=== PATIENT | female | born 1955 | race Caucasian/White ===

== ENCOUNTER → 2018-09-04 | Outpatient (CLI) | payer MEDICARE, OTHER ==
--- NOTE | 2018-09-04 15:14 | RADIOLOGY REPORT (SQ) ---
EXAM DESCRIPTION: CT CHEST WITHOUT COMPLETED DATE/TIME: 09/04/2018 1:28 pm REASON FOR STUDY: R91.8 OTHER NONSPECIFIC ABNORMAL FINDING OF LUNG FIELD R91.8 OTHER NONSPECIFIC AB NORMAL FINDING OF LUNG FIELD COMPARISON: None. TECHNIQUE: CT scan performed of the chest without intravenous contrast. Images reviewed with lung, soft tissue and bone windows. Reconstructed coronal and sagittal MPR images reviewed. All images st ored on PACS. All CT scanners at this facility use dose modulation, iterative reconstruction, and/or weight based d osing when appropriate to reduce radiation dose to as low as reasonably achievable (ALARA). [facility]: Dose Right [facility]: CareDose [facility]: Dose Right [facility]: Teradose 4D [facility]: eMindful RADIATION DOSE: CT Rad equipment meets quality standard of care and radiation dose reduction techniq ues were employed. CTDIvol: 5.2 mGy. DLP: 183 mGy-cm. mGy. LIMITATIONS: No technical limitations. FINDINGS: LUNGS AND PLEURA: Oval density along accessory fissure in the left upper lobe measures les s than 20 HU. 2.6 x 0.9 cm. This most likely represents benign fluid. Band density extends to the anterior pleural surface. Mild centrilobular emphysema. HILAR AND MEDIASTINAL STRUCTURES: No identified masses or abnormal nodes. No obvious aneurysm. HEART AND VASCULAR STRUCTURES: No aneurysm. No pericardial effusion. UPPER ABDOMEN: No significant findings. Limited exam. THYROID AND OTHER SOFT TISSUES: No masses. No adenopathy. BONES: No significant finding. HARDWARE: None in the chest. OTHER: No other significant findings. IMPRESSION: COPD. Small amount of fluid within accessory left horizontal fissure. Low suspicion fo r malignancy. Recommend [address] followup. Alternatively, PET-CT could be obtained. TECHNICAL DOCUMENTATION: JOB ID: [id number] Quality ID # [id number]: Final reports with documentation of one or more dose reduction techniques (e.g., Au tomated exposure control, adjustment of the mA and/or kV according to patient size, use of iterative reconstruction technique) 2010 [employer]- All Rights Reserved Reading location - IP/workstation name: [email or web address]
== END ==
LOC: RAD 15:39
PROVIDERS: ATTEND Internal Medicine Critical Care Medicine
DX: R91.8 Other nonspecific abnormal finding of lung field (principal)
CPT/HCPCS: 71250

== ENCOUNTER → 2018-09-22 | Outpatient (CLI) | payer MEDICARE, OTHER ==
--- NOTE | 2018-09-23 11:31 | RADIOLOGY REPORT (SQ) ---
EXAM DESCRIPTION: PET CT SKULL/THIGH COMPLETED DATE/TIME: 09/22/2018 6:24 pm REASON FOR STUDY: ABNORMAL FINDINGS IN LUNG FIELD R91.8 OTHER NONSPECIFIC ABNORMAL FINDING OF LUNG FIELD COMPARISON: CT chest 09/04/2018 RADIONUCLIDE AND DOSE: 9.2 mCi F18 FDG The route of agent administration: Intravenous FASTING BLOOD SUGAR: 98 mg/dl CONTRAST TYPE AND DOSE: No CT contrast given. TECHNIQUE: Blood glucose level was verified. Above dose of FDG was injected intravenously. 2-D seg mented attenuation correction images were obtained from the base of the skull to the midthighs. Nonc ontrast CT images were obtained for attenuation correction and fusion with emission images. CT image s were performed without oral or intravenous contrast and are not sensitive for parenchymal lesions. A series of overlapping emission PET images were obtained. Images reviewed and manipulated at [facility] work station by the radiologist. Images stored on PACS. LIMITATIONS: None. FINDINGS: HEAD AND NECK: No areas of abnormal metabolic activity in the soft tissues of the head and neck. CHEST: Left upper lobe mass is present, 2.6 x 1.4 cm in size with SUV of 7.9. There are hypermetabolic mediastinal/left hilar lymph nodes as follows: Prevascular lymph node 1.2 x 1 cm in size axial image 67, SUV 6.9 AP window lymph node 1.4 x 1 cm in size axial image 68, SUV 5.5 Left hilar lymph node 1.6 x 1.5 cm axial image 72, SUV of 9 ABDOMEN AND PELVIS: No areas of abnormal metabolic activity in the abdomen or pelvis. Expected physi ologic activity is present in the genitourinary system and bowel. PROXIMAL LOWER EXTREMITIES: No areas of abnormal metabolic activity in the soft tissues of the lower extremities. BONES: No abnormal metabolic activity in the visualized skeleton. ADDITIONAL CT FINDINGS: Small hiatal hernia. Benign 2 cm cyst left lobe liver subdiaphragmatic surfa ce. Colonic diverticulosis without CT signs of acute diverticulitis OTHER: Liver background activity 2.4 SUV. Blood pool background activity 1.9 SUV IMPRESSION: Metabolically active left upper lobe malignant mass with left hilar and mediastinal randi gnant lymph nodes TECHNICAL DOCUMENTATION: JOB ID: [id number] [employer]- All Rights Reserved Reading location - IP/workstation name: [email or web address]
== END ==
LOC: RAD 15:26
PROVIDERS: ATTEND Internal Medicine Critical Care Medicine
DX: R91.8 Other nonspecific abnormal finding of lung field (principal)
CPT/HCPCS: 78815; A9552

== ENCOUNTER → 2018-12-08 | Outpatient (CLI) | payer MEDICARE, OTHER ==
--- NOTE | 2018-12-09 11:32 | RADIOLOGY REPORT (SQ) ---
EXAM DESCRIPTION: PET CT SKULL/THIGH COMPLETED DATE/TIME: 12/08/2018 9:05 pm REASON FOR STUDY: LUNG CANCER C34.92 MALIGNANT NEOPLASM OF UNSP PART OF LEFT BRONCHUS OR L COMPARISON: PET-CT 09/22/2018 CT chest 09/04/2018 RADIONUCLIDE AND DOSE: 11.4 mCi F18 FDG The route of agent administration: Intravenous FASTING BLOOD SUGAR: 113 mg/dl CONTRAST TYPE AND DOSE: No CT contrast given. TECHNIQUE: Blood glucose level was verified. Above dose of FDG was injected intravenously. 2-D seg mented attenuation correction images were obtained from the base of the skull to the midthighs. Nonc ontrast CT images were obtained for attenuation correction and fusion with emission images. CT image s were performed without oral or intravenous contrast and are not sensitive for parenchymal lesions. A series of overlapping emission PET images were obtained. Images reviewed and manipulated at [facility] work station by the radiologist. Images stored on PACS. LIMITATIONS: None. FINDINGS: HEAD AND NECK: No areas of abnormal metabolic activity in the soft tissues of the head and neck. CHEST: Left upper lobe mass and oral measures 3 x 1.3 cm in size on axial images 80, with SUV 6.5 (wa s 2.6 x 1.4 cm SUV 7.9 on 09/22/2018). Mediastinal adenopathy is similar compared to prior PET-CT 09/22/2018 as follows: Prevascular 1.5 x 1 cm node axial image 74 SUV of 7 AP window 1.3 x 0.8 cm node axial image 73, SUV 5.5 Left hilar 1.7 x 1 cm node axial image 80, SUV 9.5 ABDOMEN AND PELVIS: No areas of abnormal metabolic activity in the abdomen or pelvis. Expected physi ologic activity is present in the genitourinary system and bowel. PROXIMAL LOWER EXTREMITIES: No areas of abnormal metabolic activity in the soft tissues of the lower extremities. BONES: No abnormal metabolic activity in the visualized skeleton. ADDITIONAL CT FINDINGS: There is wall thickening and luminal narrowing along the distal esophagus/ ga stric cardia with diffuse mild increased uptake SUV 3.9. This could represent inflammatory change ra ther than neoplasm. A 10 cm long segment of sigmoid colon wall thickening and luminal narrowing is present with SUV of 2. 9. There are multiple diverticuli in this area, findings could represent low-grade diverticular infl ammation. Focal increased uptake over the right trochanteric bursa row of the hip with SUV 3.1 likely trochante chantal bursitis. OTHER: Liver background activity 2.0 SUV. Blood pool background activity 1.6 SUV IMPRESSION: Similar appearance of the left upper lobe squamous cell lung mass and mediastinal adenop athy as compared to PET-CT 09/22/2018 TECHNICAL DOCUMENTATION: JOB ID: [id number] [employer]- All Rights Reserved Reading location - IP/workstation name: [email or web address]
== END ==
LOC: RAD 19:06
PROVIDERS: ATTEND Internal Medicine Medical Oncology
DX: C34.12 Malignant neoplasm of upper lobe, left bronchus or lung (principal)
CPT/HCPCS: 78815; A9552

== ENCOUNTER → 2019-09-29 | Outpatient (CLI) | payer MEDICARE, OTHER ==
[2019-09-29 09:22] LABS: HEMATOCRIT 28.4 % (36.0-47.0); HEMOGLOBIN 10.2 g/dL (12.0-15.5); MEAN CORPUSCULAR HEMOGLOBIN 35.2 pg (27.0-33.4); MEAN CORPUSCULAR VOLUME 98 fl (80-97); PLATELET COUNT 124 10^3/uL (150-450); RED BLOOD COUNT 2.91 10^6/uL (3.72-5.28); RED CELL DISTRIBUTION WIDTH 12.2 % (11.5-14.0)
[2019-09-29 10:09] LABS: WHITE BLOOD COUNT 1.9 10^3/uL (4.0-10.5)
[2019-09-29 13:56] LABS: PATH REVIEW PATHOLOGIST REVIEWED
== END ==
LOC: OD 08:01
PROVIDERS: ATTEND Radiology Radiation Oncology
DX: C34.12 Malignant neoplasm of upper lobe, left bronchus or lung (principal)
CPT/HCPCS: 36415; 85027

== ENCOUNTER 2019-10-04 19:46 | Emergency (ER) | payer MEDICARE, OTHER ==
--- NOTE | 2019-10-04 20:05 | ER Document Report ---
ED Medical Screen (RME) - General Stated Complaint: RIGHT ARM WEAKNESS,CHEMO PATIENT Time Seen by Provider: 10/04/19 19:56 Primary Care Provider: EYAD OLVERA MD [Primary Care Provider] - Follow up as needed Mode of Arrival: Wheelchair Information source: Patient Notes: This 64-year-old female with history of lung cancer and high blood pressure presents emergency department with right arm weakness. Patient is not able to raise her right arm. Reports symptoms started possibly around . She is currently under the treatment of oncology receiving chemo and radiation for lung cancer. reports she has had increased weakness. Facial features symmetric answering all questions appropriately some bilateral weakness to the lower extremities. Denies history of stroke. I have greeted and performed a rapid initial assessment of this patient. A comprehensive ED assessment and evaluation of the patient, analysis of test results and completion of the medical decision making process will be conducted by additional ED providers. Dictation of this chart was performed using voice recognition software; therefore, there may be some unintended grammatical errors. TRAVEL OUTSIDE OF THE [place] IN LAST 30 DAYS: No Physical Exam - Vital signs Vitals: Temp Pulse Resp BP Pulse Ox 97.8 F 115 H 20 131/77 H 99 10/04/19 19:56 10/04/19 19:56 10/04/19 19:56 10/04/19 19:56 10/04/19 19:56 Course - Vital Signs Vital signs: Temp Pulse Resp BP Pulse Ox 97.8 F 115 H 20 131/77 H 99 10/04/19 19:56 10/04/19 19:56 10/04/19 19:56 10/04/19 19:56 10/04/19 19:56 Doctor's Discharge - Discharge Referrals: EYAD OLVERA MD [Primary Care Provider] - Follow up as needed
[2019-10-04 20:42] LABS: HEMATOCRIT 29.7 % (36.0-47.0); HEMOGLOBIN 10.5 g/dL (12.0-15.5); MEAN CORPUSCULAR HEMOGLOBIN 35.3 pg (27.0-33.4); MEAN CORPUSCULAR HGB CONC 35.4 g/dL (32.0-36.0); MEAN CORPUSCULAR VOLUME 100 fl (80-97); PLATELET COUNT 153 10^3/uL (150-450); RED BLOOD COUNT 2.98 10^6/uL (3.72-5.28); RED CELL DISTRIBUTION WIDTH 13.1 % (11.5-14.0); WHITE BLOOD COUNT 4.9 10^3/uL (4.0-10.5)
[2019-10-04 20:48] LABS: PROTHROMBIN TIME 12.7 SEC (11.4-15.4)
[2019-10-04 20:49] LABS: INTERNATIONAL RATION (INR) 0.95; PARTIAL THROMBOPLASTIN TIME 28.5 SEC (23.5-35.8)
--- NOTE | 2019-10-04 20:52 | RADIOLOGY REPORT (SQ) ---
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 COMPARISON: None. TECHNIQUE: CT scan of the brain without IV contrast. This exam was performed according to our departmental dose-optimization program, which includes automated exposure control, adjustment of the mA and/or kV according to patient size and/or use of iterative reconstruction technique. FINDINGS: There is a focal area of hypodensity in the left parietal lobe likely representing acute infarction. No evidence of intracranial hemorrhage, extra-axial fluid collection, or midline shift. No air-fluid levels are seen in the paranasal sinuses to suggest acute sinusitis. No depressed skull fracture. IMPRESSION: 1. 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 Consider MRI for confirmation. 2. No acute intracranial hemorrhage.
[2019-10-04 20:56] LABS: ALBUMIN 4.1 g/dL (3.5-5.0); ALKALINE PHOSPHATASE 74 U/L (38-126); ANION GAP 12 (5-19); ASPARTATE AMINO TRANSFERASE 18 U/L (14-36); BILIRUBIN,DIRECT 0.1 mg/dL (0.0-0.4); BILIRUBIN,TOTAL 0.7 mg/dL (0.2-1.3); BLOOD UREA NITROGEN 10 mg/dL (7-20); CALCIUM 9.3 mg/dL (8.4-10.2); CARBON DIOXIDE 27 mmol/L (22-30); CHLORIDE 98 mmol/L (98-107); CREATINE KINASE 22 U/L (30-135); GLUCOSE 148 mg/dL (75-110); POTASSIUM 4.1 mmol/L (3.6-5.0); TOTAL PROTEIN 6.8 g/dL (6.3-8.2)
--- NOTE | 2019-10-04 20:56 | RADIOLOGY REPORT (SQ) ---
EXAM DESCRIPTION: XR CHEST 1 VIEW COMPLETED DATE/TME: 10/04/2019 20:03 CLINICAL HISTORY: 64 years, Female, right arm weakness COMPARISON: Prior PET/CT from 12/08/2018; 07/31/2019 NUMBER OF VIEWS: One TECHNIQUE: Single frontal view of the chest was obtained LIMITATIONS: None. FINDINGS: Cardiac and mediastinal contours are normal. Lungs are clear. No pleural effusion or pneumothorax. Previously detailed left suprahilar mass is poorly appreciated on this plain radiographic exam when compared with previous PET/CT dated 07/31/2019. IMPRESSION: No acute disease. copyright 2010 [employer]- All Rights Reserved
[2019-10-04 21:05] LABS: ABSOLUTE LYMPHOCYTES# (MANUAL) 0.1 10^3/uL (0.5-4.7); ABSOLUTE MONOCYTES # (MANUAL) 0.2 10^3/uL (0.1-1.4); BAND NEUTROPHILS % (MANUAL) 8 % (3-5); BASOPHILS % (MANUAL) 0 % (0-2); EOSINOPHILS % (MANUAL) 0 % (0-6); HYPOCHROMASIA 1+; LYMPHOCYTES % (MANUAL) 3 % (13-45); MONOCYTES % (MANUAL) 4 % (3-13); SEGMENTED NEUTROPHILS % (MAN) 85 % (42-78); TOTAL CELLS COUNTED 100
[2019-10-04 21:06] LABS: PLATELET COMMENT ADEQUATE
[2019-10-04 21:08] LABS: CREATINE KINASE MB 0.54 ng/mL (<4.55)
[2019-10-04 21:10] LABS: TROPONIN I < 0.012 ng/mL
[2019-10-04 23:27] VITALS: BP 151/82
--- NOTE | 2019-10-05 00:09 | EKG REPORT ---
SEVERITY:- ABNORMAL ECG - SINUS TACHYCARDIA BORDERLINE LEFT AXIS DEVIATION BORDERLINE PROLONGED QT INTERVAL LA ABNORMALITY CONSIDER OLD TRUE POST [place]. : Confirmed by: Rubin Soto MD 05-Oct-2019 00:08:38
--- NOTE | 2019-10-07 08:30 | ER Document Report ---
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 at bedside states he noticed the right upper extremity weakness a few nights ago but it "was really not all that bad" so he did not think anything of it, stating that it "just seemed like the patient was not using her right arm as much as she normally would". reports yesterday the patient seemed to use her right arm even less than the day before, and today, the patient has essentially never used her right upper extremity. reports that today when the patient was showering he noticed that she seemed to "kind of fall over". further describes this as stating that the patient has a bench that she sits on in the shower. reports that the patient was sitting down on the bench and seemed to "fall over" towards the right-hand side. states that he was able to gently rest the patient down, there was no trauma. Patient denies any vision changes. TRAVEL OUTSIDE OF THE [place] IN LAST 30 DAYS: No - Related Data Allergies/Adverse Reactions: codeine Allergy (Verified 10/04/19 20:06) shellfish derived Allergy (Verified 10/04/19 20:06) seafood Allergy (Uncoded 10/04/19 20:06) Home Medications: albuterol. Calcium carbonate. citalopram. cyanocobalamin. dexamethasone. fluticasone propionate. lidocaine. zofran. loratadine. pantoprazole. rosuvastatin. trazadone. Gabapentine Past Medical History - General Information source: Patient - Social History Smoking Status: Current Every Day Smoker Cigarette use (# per day): Yes Chew tobacco use (# tins/day): No Frequency of alcohol use: None Drug Abuse: None Lives with: Family Family History: Reviewed & Not Pertinent Patient has suicidal ideation: No Patient has homicidal ideation: No Malignancy Medical History: Reports: 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 Currently on both chemotherapy and radiation Review of Systems - Review of Systems Constitutional: No symptoms reported EENT: No symptoms reported Cardiovascular: No symptoms reported Respiratory: No symptoms reported Gastrointestinal: No symptoms reported Genitourinary: No symptoms reported Female Genitourinary: No symptoms reported Musculoskeletal: No symptoms reported Skin: No symptoms reported Hematologic/Lymphatic: No symptoms reported Neurological/Psychological: See HPI, Other - sensation changes to RUE, RUE weakness -: Yes All other systems reviewed and negative Physical Exam - Vital signs Vitals: Temp Pulse Resp BP Pulse Ox 97.8 F 115 H 20 131/77 H 99 10/04/19 19:56 10/04/19 19:56 10/04/19 19:56 10/04/19 19:56 10/04/19 19:56 - General General appearance: Appears well In distress: None - HEENT Head: Normocephalic, Atraumatic Eyes: Normal Conjunctiva: Normal Cornea: Normal Extraocular movements intact: Yes - Respiratory Respiratory status: No respiratory distress Chest status: Nontender Breath sounds: Normal - Cardiovascular Rhythm: Regular Heart sounds: Normal auscultation Murmur: No - Abdominal Inspection: Normal Distension: No distension Bowel sounds: Normal Tenderness: Nontender - Extremities General upper extremity: Other - See neuro exam. Right upper extremity is essentially flaccid throughout exam. General lower extremity: Normal inspection, Nontender, Normal ROM. No: Edema - Neurological Neuro grossly intact: No Cognition: Normal Orientation: AAOx4 Hubertus Coma Scale Eye Opening: Spontaneous Hubertus Coma Scale Verbal: Oriented Hubertus Coma Scale Motor: Obeys Commands Oh Coma Scale Total: 15 Speech: Normal Additional motor exam normals: Other - 5/5 punch box tender strength on the left, 0/5 punch box tender strength on the right Sensory: Other - Complains of altered sensation in the right upper extremity only - Psychological Associated symptoms: Normal affect, Normal mood - Skin Skin Temperature: Warm Skin Moisture: Dry Skin Color: Normal Course - Re-evaluation Re-evalutation: 10/04/19 21:48 Spoke to the transfer center at [facility] about potential transfer of patient. Spoke to hospitalist, Dr. Kay who accepted the patient for transfer, but did mention that [facility] is on "regional bed delay", stating that it would likely be 24 hours until the patient gets a bed. They have added her "to their list" and request that if she gets placement at another facility sooner to call them and let them know. Family and patient updated regarding above-mentioned details. Patient and family express understanding and are in agreement with this plan. - Vital Signs Vital signs: Temp Pulse Resp BP Pulse Ox 97.8 F 115 H 19 141/68 H 100 10/04/19 19:56 10/04/19 19:56 10/04/19 20:29 10/04/19 20:29 10/04/19 20:53 - Laboratory Result Diagrams: 10/04/19 20:30 10/04/19 20:30 Laboratory results interpreted by me: 10/04/19 10/04/19 20:30 20:30 RBC 2.98 L Hgb 10.5 L Hct 29.7 L MCV 100 H MCH 35.3 H Seg Neuts % (Manual) 85 H Band Neutrophils % 8 H Lymphocytes % (Manual) 3 L Abs Lymphs (Manual) 0.1 L Sodium 136.7 L Glucose 148 H Creatine Kinase 22 L - Diagnostic Test Radiology reviewed: Reports reviewed - EKG Interpretation by Me Additional EKG results interpreted by me: 10/04/19 21:16 EKG performed on 10/04/2019 at 2044 hrs. was interpreted by this MD. Findings sinus tachycardia, rate 100, normal axis, P waves preceding QRS complexes, QRS complexes appear narrow, there are no ST segment elevations or depressions suggestive of acute myocardial ischemia or infarction. Impression sinus tachycardia with nonspecific ST segments. ED Alteplase Inc/Exc Criteria - Inclusion Criteria: 1: Patient presented to ED within 3 hours of acute ischemic stroke symptom onset? -: No 2: Did baseline CT exclude intracranial hemorrhage and/or other risk factors? -: Yes 3: Is the age of the patient 18 years of age or greater? -: Yes : If any of the above questions are answered "NO" then stop, patient is not a candidate for Alteplase, : If all of the above questions are answered "YES" then continue with Exclusion Criteria. - Exclusion Criteria: 1: Is there evidence of intracranial hemorrhage on baseline CT? 2: Is there suspicion of subarachnoid hemorrhage (even if CT negative)? 3: Is there a history of serious head trauma, recent previous stroke or WI within 3 months? 4: Does the patient have a clinical presentation consistent with WI or post-WI pericarditis? 5: Is there history of intracranial hemorrhage? 6: On repeated measurement is Systolic BP greater than 185mmHg or Diastolic BP greater that 110 mmHg and is aggressive treatment needed to reduce blood pressure to these limits (e.g. constant infusion of an anti-hypertensive)? 7: Did the patient awake with stroke symptoms? 8: Has the patient had a lumbar puncture or an arterial puncture at a non- compressile site within 7 days? 9: With in the last 14 days did the patient have surgery or major trauma? 10: Is the patient or less than 2 weeks? 11: Was there any active bleeding or acute trauma? 12: Does the patient have intracranial neoplasm, arteriovenous malformation or aneurysm? 13: Does the patient have abnormal glucose (less than 50 or greater than 400mg/dl)? Record glucose in Comment. 14: Patient has rapidly improving symptoms at the time Alteplase is to be Administered. 15: Does the patient have any risks for bleeding, including but not limited to: a.: Current use of Coumadin with PT greater than 15 seconds or INR greater than 1.7. b.: Current use of Pradaxa (Dabigatran). c.: Heparin administereed within the past 48 hours and PTT elevated. d.: Platelet count less than 100,000/mm. e.: Major surgery or serious trauma within 14 days. f.: Gastrointestinal or gynecological urinary bleeding within 14 days. g.: Myocardial Infarction (WI) within 3 months. : If the answer to any of the above questions is "YES" then stop, the patient is not a candidate for Alteplase. : If the answer to all of the above questions is "NO" then the patient may be eligible for the Administration of Alteplase. : If the patient is noted to have seizure activity at onset of Stroke symptoms; Consult Neurologist for further evaluation. - The patient is: -: Included and is eligible to receive Alteplase. *Initiate bed placement at higher level of care* Reviewed risks & benefits of thrombolytic therapy: I have reviewed the risks and benefits of thrombolytic therapy with the patient and/or his/her family. -: Excluded and not eligible to receive Alteplase for the above exclusions. -: Excluded and not eligible to receive Alteplase for other reasons (specify in comments): - Diagnosis of TIA: -: Patient presented with transient symptoms that are now resolved and no other neurologic findings are currently present. List symptoms in comments. -: Patient is NOT a candidate for tPA. -: ____(put name in comment) has been consulted for admission and continued evaluation of risk factor assessment. ED NIH Stroke Scale - NIH Stroke Scale When completed:: Before Alteplase *: 1. NIH scale should be completed with appropriate accompanying assessment tools. *: 2. The NIH should reflect what the patient is capable of doing and should not be coached by the clinician. 1a. Level of Consciousness: 0=Alert;keenly responsive -: 1=Drowsy -: 2=Obtunded -: 3=Coma/unresponsive or reflex to noxious stimuli. 1a. Responses: 0 1b. Orientation Questions: a. What month is it? -: b. How old are you? -: 0=Answers both questions correctly. -: 1=Answers one question correctly or patient is intubated or has orotracheal trauma. -: 2=Answers neither question correctly. 1b. Responses: 0 1c. Response to commands: a. Open and close eyes? -: b. Clerical Specialist and release hand? -: Credit is given despite weakness. Demonstration of task is permitted. Substitute command if hands cannot be used. -: 0=Performs both tasks correctly -: 1=Performs one task correctly -: 2=Performs neither task correctly 1c. Responses: 0 2. Gaze: Establish eye contact and instruct patient to "Follow my finger" -: 0=Normal -: 1=Partial gaze palsy. Gaze is abnormal in one or both eyes, but where forced deviation or total gaze paresis is not present. -: 2=Forced deviation or total gaze paresis. 2. Responses: 0 3. Visual Evans: Sees fingers in all four quadrants. -: 0=No visual loss. -: 1=Partial hemianopsia. -: 2=Complete hemianopsia. -: 3=Bilateral hemianopsia (including Cortical blindness) 3. Responses: 0 4. Facial Movement: Instruct patient to: -: a. Show me your teeth -: b. Raise your eyebrows -: c. Close your eyes -: d. Smile -: 0=Normal symmetrical movement -: 1=Minor paralysis (flattened nasolabial fold, asymmetry on smiling). -: 2=Partial paralysis (total or near total paralysis of lower face). -: 3=Complete paralysis of upper and lower face 4. Responses: 0 5. Motor functions (left arm): Alternate sides and extend each arm with palms down (90 degrees if sitting or 45 degrees for supine). -: 0=No drift;limb holds for full 10 seconds. -: 1=Drift; limb holds but drifts down before full 10 seconds, but does not hit bed. -: 2=Some effort against gravity; limb cannot get to or maintain position. -: 3=No effort against gravity; limb falls. -: 4=No movement. -: UN=Amputation, joint fusion, explain in comments. 5. Responses (left arm): 0 5. Motor Functions (right arm): Alternate sides and extend each arm with palms down (90 degrees if sitting or 45 degrees for supine). -: 0=No drift;limb holds for full 10 seconds. -: 1=Drift; limb holds but drifts down before full 10 seconds, but does not hit bed. -: 2=Some effort against gravity; limb cannot get to or maintain position. -: 3=No effort against gravity; limb falls. -: 4=No movement. -: UN=Amputation, joint fusion, explain in comments. 5. Responses (right arm): 4 6. Motor Functions (left leg): With patient lying supine, alternate sides and extend each leg (30 degrees always while supine). -: 0=No drift, leg holds position for full 5 seconds -: 1=Drift; leg falls before full 5 seconds but does not hit bed. -: 2=Some effort against gravity, leg falls to bed but some effort against gravi ty. -: 3=No effort against gravity, leg falls to bed immediately. -: 4=No movement. -: UN=Amputation, joint fusion; explain in comments. 6. Responses (left leg): 0 6. Motor Functions (right leg): With patient lying supine, alternate sides and extend each leg (30 degrees always while supine). -: 0=No drift, leg holds position for full 5 seconds -: 1=Drift; leg falls before full 5 seconds but does not hit bed. -: 2=Some effort against gravity, leg falls to bed but some effort against gravity. -: 3=No effort against gravity, leg falls to bed immediately. -: 4=No movement. -: UN=Amputation, joint fusion; explain in comments. 6. Responses (right leg): 0 7. Limb Ataxia: With eyes open instruct patient to: -: a. "Touch your finger to your nose". -: b. "Touch your heel to your saldana" -: 0=Absent -: 1=Present in one limb. -: 2=Present in two limbs. -: UN=Amputation or joint fusion; explain in comments. 7. Responses: 1 8. Sensory: Test sensation using pinprick or noxious stimuli. Test as many body parts as possible. -: 0=Normal;no sensory loss -: 1=Mile to moderate sensory loss (patient feels pin prick but is less sharp on affected side). -: 2=Severe or total sensory loss. 8. Responses: 1 9. Best Language: Instruct patient to: -: a. "Describe what you see in this picture." -: b. "Name the items in this picture." -: c. "Read these sentences." -: 0=No aphasia, normal -: 1=Mild to moderate aphasia. -: 2=Severe aphasia -: 3=Mute, global aphasia, no usable speech or auditory comprehension. 9. Responses: 0 10. Articulation, Dysarthia: Instruct patient to: -: "Read these words" or "Repeat these words" -: 0=Normal -: 1=Mild to moderate; patient may slur some words but can be understood without difficulty. -: 2=Severe; patients speech so slurred as to be unintelligible in the absence of dysphasia. -: UN=Intubated or other physical barrier, explain in comments. 10. Responses: 0 11. Extinction or inattention: 0=No abnormality -: 1= Visual, tactile, auditory, spatial, or personal inattention or extinction to bilateral simulation in one or the sensory modalities. -: 2=Profound lee ann-inattention or lee ann-inattention to more than one modality; does not recognize own hand. 11. Responses: 0 Total Score: 6 Discharge - Discharge Clinical Impression: Ischemic stroke Condition: Good Disposition: [facility] Referrals: EYAD OLVERA MD [URMILA BAE] - Follow up as needed I personally performed the services described in the documentation, reviewed and edited the documentation which was dictated to the scribe in my presence, and it accurately records my words and actions.
== END 2019-10-04 23:40 | disposition short-term general hospital (02) ==
LOC: ER 19:46
DX: I63.9 Cerebral infarction, unspecified (principal); G83.21 Monoplegia of upper limb affecting right dominant side; R20.9 Unspecified disturbances of skin sensation; R29.706 NIHSS score 6; C34.90 Malignant neoplasm of unspecified part of unspecified bronchus or lung; C77.9 Secondary and unspecified malignant neoplasm of lymph node, unspecified; Z79.899 Other long term (current) drug therapy; R00.0 Tachycardia, unspecified; F17.210 Nicotine dependence, cigarettes, uncomplicated; Z88.6 Allergy status to analgesic agent; Z88.5 Allergy status to narcotic agent; Z91.013 Allergy to seafood
CPT/HCPCS: 36415; 70450; 71045; 80053; 82550; 82553; 84484; 85025; 85610; 85730; 93005; 93010; 99285

== ENCOUNTER → 2019-10-27 | Outpatient (CLI) | payer MEDICARE, OTHER ==
[2019-10-27 12:06] LABS: ABSOLUTE LYMPHOCYTES (AUTO) 0.6 10^3/uL (0.5-4.7); ABSOLUTE MONOCYTES (AUTO) 0.5 10^3/uL (0.1-1.4); ABSOLUTE NEUT (AUTO) 4.4 10^3/uL (1.7-8.2); BASOPHILS % (AUTO) 0.5 % (0-2); EOSINOPHILS % (AUTO) 0.6 % (0-6); HEMATOCRIT 31.2 % (36.0-47.0); HEMOGLOBIN 10.8 g/dL (12.0-15.5); LYMPHOCYTES % (AUTO) 10.4 % (13-45); MEAN CORPUSCULAR HEMOGLOBIN 36.7 pg (27.0-33.4); MEAN CORPUSCULAR HGB CONC 34.6 g/dL (32.0-36.0); MONOCYTES % (AUTO) 9.6 % (3-13); PLATELET COUNT 208 10^3/uL (150-450); RED BLOOD COUNT 2.94 10^6/uL (3.72-5.28); RED CELL DISTRIBUTION WIDTH 20.6 % (11.5-14.0); SEGMENTED NEUTROPHILS % (AUTO) 78.9 % (42-78); TOTAL CELLS COUNTED % (AUTO) 100 %; WHITE BLOOD COUNT 5.6 10^3/uL (4.0-10.5)
[2019-10-27 12:19] LABS: MEAN CORPUSCULAR VOLUME 106 fl (80-97)
[2019-10-27 12:24] LABS: ALBUMIN 4.2 g/dL (3.5-5.0); ALKALINE PHOSPHATASE 64 U/L (38-126); ANION GAP 8 (5-19); ASPARTATE AMINO TRANSFERASE 27 U/L (14-36); BILIRUBIN,DIRECT 0.2 mg/dL (0.0-0.4); BILIRUBIN,TOTAL 0.5 mg/dL (0.2-1.3); BLOOD UREA NITROGEN 10 mg/dL (7-20); CALCIUM 9.4 mg/dL (8.4-10.2); CARBON DIOXIDE 27 mmol/L (22-30); CHLORIDE 101 mmol/L (98-107); GLUCOSE 113 mg/dL (75-110); POTASSIUM 4.7 mmol/L (3.6-5.0); TOTAL PROTEIN 7.1 g/dL (6.3-8.2)
== END ==
LOC: OD 10:59
PROVIDERS: ATTEND Internal Medicine
DX: C34.92 Malignant neoplasm of unspecified part of left bronchus or lung (principal); D64.81 Anemia due to antineoplastic chemotherapy; T45.1X5A Adverse effect of antineoplastic and immunosuppressive drugs, initial encounter
CPT/HCPCS: 36415; 80053; 85025

== ENCOUNTER 2019-12-22 17:53 | Emergency (ER) | payer MEDICARE, OTHER ==
--- NOTE | 2019-12-22 18:24 | ER Document Report ---
ED Medical Screen (RME) - General Chief Complaint: Leg Pain Stated Complaint: LEG CRAMPS Time Seen by Provider: 12/22/19 18:11 Primary Care Provider: AUTUMN LOUIE [Primary Care Provider] - Follow up as needed Notes: Patient is a 64-year-old female who presents emergency department with a chief complaint of leg cramps. Patient reports started on she has developed bilateral leg cramps. Patient is currently going through immunotherapy for lung cancer. Patient is on Xarelto due to a stroke back in Sep 2019. Patient reports she does have a chronic cough but appears to be more congested. Denies fever. Reports that she does vomit daily but has not had any diarrhea. TRAVEL OUTSIDE OF THE [place] IN LAST 30 DAYS: No - Related Data Allergies/Adverse Reactions: codeine Allergy (Verified 12/22/19 18:11) shellfish derived Allergy (Verified 12/22/19 18:11) seafood Allergy (Uncoded 10/04/19 20:06) Past Medical History - Past Medical History Cardiac Medical History: Reports: Hx Hypertension Malignancy Medical History: Reports: 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 Currently on both chemotherapy and radiation Physical Exam - Vital signs Vitals: Temp Pulse Resp BP Pulse Ox 98.2 F 97 19 133/110 H 93 12/22/19 17:58 12/22/19 17:58 12/22/19 17:58 12/22/19 17:58 12/22/19 17:58 - Cardiovascular Rhythm: Regular Heart sounds: S1 appreciated, S2 appreciated Course - Re-evaluation Re-evalutation: 12/22/19 18:24 I have greeted and performed a rapid initial assessment of this patient. A comprehensive ED assessment and evaluation of the patient, analysis of test results and completion of the medical decision making process will be conducted by additional ED providers. - Vital Signs Vital signs: Temp Pulse Resp BP Pulse Ox 98.2 F 97 19 133/110 H 93 12/22/19 17:58 12/22/19 17:58 12/22/19 17:58 12/22/19 17:58 12/22/19 17:58 Doctor's Discharge - Discharge Referrals: AUTUMN LOUIE [Primary Care Provider] - Follow up as needed
--- NOTE | 2019-12-22 19:01 | RADIOLOGY REPORT (SQ) ---
EXAM DESCRIPTION: CHEST 2 VIEWS COMPLETED DATE/TIME: 12/22/2019 6:31 pm REASON FOR STUDY: Hx. Lung cancer, worsening congested cough COMPARISON: 10/04/2019 EXAM PARAMETERS: NUMBER OF VIEWS: two views TECHNIQUE: Digital Frontal and Lateral radiographic views of the chest acquired. RADIATION DOSE: NA LIMITATIONS: none FINDINGS: LUNGS AND PLEURA: Patchy opacities perihilar on the left. No focal finding in the right l joel. MEDIASTINUM AND HILAR STRUCTURES: No masses or contour abnormalities. HEART AND VASCULAR STRUCTURES: Heart normal size. No evidence for failure. BONES: No acute findings. HARDWARE: Venous access catheter at the cavoatrial junction. OTHER: No other significant finding. IMPRESSION: Patchy left perihilar pneumonia. TECHNICAL DOCUMENTATION: JOB ID: [id number] 2010 [employer]- All Rights Reserved Reading location - IP/workstation name: [email or web address]
[2019-12-22 19:39] LABS: ABSOLUTE LYMPHOCYTES (AUTO) 0.4 10^3/uL (0.5-4.7); ABSOLUTE MONOCYTES (AUTO) 0.7 10^3/uL (0.1-1.4); ABSOLUTE NEUT (AUTO) 3.2 10^3/uL (1.7-8.2); BASOPHILS % (AUTO) 0.4 % (0-2); EOSINOPHILS % (AUTO) 0.6 % (0-6); HEMOGLOBIN 10.4 g/dL (12.0-15.5); LYMPHOCYTES % (AUTO) 9.3 % (13-45); MEAN CORPUSCULAR HEMOGLOBIN 36.1 pg (27.0-33.4); MEAN CORPUSCULAR HGB CONC 34.8 g/dL (32.0-36.0); MEAN CORPUSCULAR VOLUME 104 fl (80-97); MONOCYTES % (AUTO) 15.9 % (3-13); PLATELET COUNT 166 10^3/uL (150-450); RED BLOOD COUNT 2.89 10^6/uL (3.72-5.28); RED CELL DISTRIBUTION WIDTH 13.4 % (11.5-14.0); SEGMENTED NEUTROPHILS % (AUTO) 73.8 % (42-78); TOTAL CELLS COUNTED % (AUTO) 100 %; WHITE BLOOD COUNT 4.4 10^3/uL (4.0-10.5)
[2019-12-22 19:58] LABS: ALKALINE PHOSPHATASE 80 U/L (38-126); ANION GAP 8 (5-19); ASPARTATE AMINO TRANSFERASE 42 U/L (14-36); BILIRUBIN,DIRECT 0.3 mg/dL (0.0-0.4); BILIRUBIN,TOTAL 0.7 mg/dL (0.2-1.3); BLOOD UREA NITROGEN 13 mg/dL (7-20); CARBON DIOXIDE 26 mmol/L (22-30); CHLORIDE 98 mmol/L (98-107); GLUCOSE 92 mg/dL (75-110); POTASSIUM 3.8 mmol/L (3.6-5.0)
[2019-12-22] MEDS ORDERED: TRAMADOL HCL 50 MG TABLET PO ONE (19:58)
--- NOTE | 2019-12-22 20:12 | EKG REPORT ---
SEVERITY:- NORMAL ECG - SINUS RHYTHM : Confirmed by: Rubin Soto MD 22-Dec-2019 20:11:23
--- NOTE | 2019-12-22 20:57 | ER Document Report ---
Entered by ONUR MADDEN SCRIBE 12/22/191955 Acting as scribe for:RANJAN LYONS DO ED General - General Chief Complaint: Leg Pain Stated Complaint: LEG CRAMPS Time Seen by Provider: 12/22/19 18:11 Primary Care Provider: AUTUMN LOUIE [NO LOCAL MD] - Follow up as needed Information source: Patient, Relative - Spouse Notes: 64-year-old female with lung cancer presents to the emergency department complaining of bilateral leg cramping and pain. Patient describes the pain at severe, 4.5/5, from her ankles to her knees. Patient stated that the pain started in her ankles but now the pain is from her ankles to her knee. Patient's spouse reports patient felt pain in thighs yesterday. Patient reports that she has not had pain in her legs "to this extent" before. Patient states that tramadol helped with pain at home. Patient denies fever. Patient's spouse reported that patient received an IV of potassium on at [facility]. Patient is on immunosuppressant therapy for her lung cancer. Patient describes that she has had two rounds of chemotherapy. One round without radiation and the second round with radiation. This second round was stopped in September (3 months ago) due to patient's CVA. Patient started immunosuppressant therapy by infusion recently. Next appointment is on the . TRAVEL OUTSIDE OF THE [place] IN LAST 30 DAYS: No - Related Data Allergies/Adverse Reactions: codeine Allergy (Verified 12/22/19 18:11) shellfish derived Allergy (Verified 12/22/19 18:11) seafood Allergy (Uncoded 10/04/19 20:06) Past Medical History - General Information source: Patient - Social History Smoking Status: Current Every Day Smoker Cigarette use (# per day): Yes Chew tobacco use (# tins/day): Yes Family History: Reviewed & Not Pertinent Patient has suicidal ideation: No Patient has homicidal ideation: No - Past Medical History Cardiac Medical History: Reports: Hx Hypertension Neurological Medical History: Reports: Hx Cerebrovascular Accident - Sep 2019 Malignancy Medical History: Reports: 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 Currently on both chemotherapy and radiation Past Surgical History: Reports: Hx Cardiac Surgery - Port-A-Cath placement Review of Systems - Review of Systems Constitutional: See HPI. denies: Fever EENT: No symptoms reported Cardiovascular: No symptoms reported Respiratory: No symptoms reported Gastrointestinal: No symptoms reported Genitourinary: No symptoms reported Female Genitourinary: No symptoms reported Musculoskeletal: See HPI, Other - Bilateral Leg pain Skin: No symptoms reported Hematologic/Lymphatic: No symptoms reported Neurological/Psychological: No symptoms reported -: Yes All other systems reviewed and negative Physical Exam - Vital signs Vitals: Temp Pulse Resp BP Pulse Ox 98.2 F 97 19 133/110 H 93 12/22/19 17:58 12/22/19 17:58 12/22/19 17:58 12/22/19 17:58 12/22/19 17:58 - Notes Notes: General: Alert, appears frail and chronically ill. HEENT: Normocephalic. Atraumatic. PERRL. Extraocular movements intact. Oropharynx clear. Neck: Supple. Non-tender. Respiratory: No respiratory distress. Clear and equal breath sounds bilaterally. Cardiovascular: Regular rate and rhythm. Abdominal: Normal Inspection. Non-tender. No distension. Normal Bowel Sounds. Back: No gross abnormalities. Extremities: Moves all four extremities. Upper extremities: Normal inspection. Normal ROM. Lower extremities: Normal inspection. No edema. Normal ROM. Neurological: Normal cognition. AAOx4. Normal speech. Psychological: Normal affect. Normal Mood. Skin: Warm. Dry. Normal color. Course - Re-evaluation Re-evalutation: 12/22/19 22:40 MDM frail chronically ill appearing female with lung cancer undergoing active treatment is here with bilateral lower ext pain. No fever or chills. No chest pain or sob. Dopplers here are normal. She is improved slightly here. Will administer B12 and give norco and norco to go. She will call oncologist in the am and PCP for pain medicine. Left lung is where the cancer is at. May have pneumonia vs scar from Xrt. Will administer cephalosporin and we spoke at length regarding follow up and she and her expressed understanding. - Vital Signs Vital signs: Temp Pulse Resp BP Pulse Ox 98.6 F 96 16 134/86 H 93 12/22/19 23:02 12/22/19 23:02 12/22/19 23:02 12/22/19 23:02 12/22/19 23:02 - Laboratory Result Diagrams: 12/22/19 19:16 12/22/19 19:16 Laboratory results interpreted by me: 12/22/19 12/22/19 19:16 19:16 RBC 2.89 L Hgb 10.4 L Hct 30.0 L MCV 104 H MCH 36.1 H Lymph % (Auto) 9.3 L Callahan % (Auto) 15.9 H Absolute Lymphs (auto) 0.4 L Sodium 132.1 L Calcium 8.0 L AST 42 H Total Protein 6.0 L Albumin 3.0 L - Diagnostic Test Radiology reviewed: Reports reviewed Discharge - Discharge Clinical Impression: Leg pain, bilateral Condition: Fair Disposition: HOME, SELF-CARE Instructions: Leg Pain Nonspecific ([facility]) Additional Instructions: Rest, fluids, please return here for any problems or any concerns. Call the oncologist in the morning. Prescriptions: Cefuroxime Axetil [Ceftin 250 mg Tablet] 250 mg PO BID #20 tablet Referrals: LOCALMD,NO [NO LOCAL MD] - Follow up as needed I personally performed the services described in the documentation, reviewed and edited the documentation which was dictated to the scribe in my presence, and it accurately records my words and actions.
[2019-12-22] MEDS ORDERED: CYANOCOBALAMIN (VITAMIN B-12) INJ 1000 MCG/1 ML VIAL IM ONE (22:36)
[2019-12-22] MEDS ORDERED: HYDROCODONE/ACETAMINOPHEN 5-325 MG (6 TAB/ER DISP) PO PRN (22:38)
[2019-12-22] MEDS ORDERED: HYDROCODONE/ACETAMINOPHEN 5-325 MG TABLET PO ONE (22:38)
[2019-12-22 23:02] VITALS: BP 134/86
--- NOTE | 2019-12-23 11:10 | XCELERA REPORT ---
[address] [facility] [address] Lower Extremity Venous Evaluation Procedure: Color flow and duplex imaging bilaterally of the veins of the lower extremities as well as the Common Femoral veins. Right Sided Venous Evaluation Normal vessel filling wall to wall, compression and augmentation as well as Colour flow down to the infrageniculate veins. Left Sided Venous Evaluation Normal vessel filling wall to wall, compression and augmentation as well as Colour flow down to the infrageniculate veins. Interpretation Summary There is no evidence of deep vein thrombosis bilaterally. Name: MANNY CORRALES Age: 64 yrs Gender: Female : 1955 Patient Status: Emergency Patient Location: ER Study Date: 12/22/2019 09:41 PM Reason For Study: leg pain/ lung cancer Ordering Physician: RANJAN LYONS Performed By: Salma Marina : RANJAN LYONS > Ham Pepper
== END 2019-12-22 23:17 | disposition home or self-care (01) ==
LOC: ER 17:53
DX: M79.605 Pain in left leg (principal); M79.604 Pain in right leg; C34.92 Malignant neoplasm of unspecified part of left bronchus or lung; C77.9 Secondary and unspecified malignant neoplasm of lymph node, unspecified; I10 Essential (primary) hypertension; F17.210 Nicotine dependence, cigarettes, uncomplicated; Z86.73 Personal history of transient ischemic attack (TIA), and cerebral infarction without residual deficits; Z88.6 Allergy status to analgesic agent; Z91.013 Allergy to seafood
CPT/HCPCS: 36591; 99284; 96372; 36415; 83735; 85025; 80053; 93970 ×2; 71046; 93005; 93010; J3420; A9270 ×3; J1642

== ENCOUNTER 2020-03-30 19:50 | Inpatient (IN) | payer MEDICARE, OTHER ==
[2020-03-30] MEDS ORDERED: NORMAL SALINE 1000 ML 1,000 ML IV ONE (21:38)
[2020-03-30] MEDS ORDERED: ONDANSETRON HCL INJ/PF 4 MG/2 ML SDV IV ONE (21:38)
--- NOTE | 2020-03-30 21:42 | ER Document Report ---
ED General - General Chief Complaint: Diarrhea Stated Complaint: NAUSEA,VOMITING,DIARRHEA Time Seen by Provider: 03/30/20 21:08 Notes: Patient is a 65-year-old female who presents emergency department with a chief complaint of nausea, vomiting, and diarrhea for the past week. Patient has a history of left lung cancer. She states that she did not want to come to the emergency department, but her brought her because he called her on cologist, Dr. Guerra, at [facility]. Patient was brought to the emergency department by her . Patient states that she last saw Dr. Guerra 2 weeks ago. She is on immunotherapy. TRAVEL OUTSIDE OF THE [place] 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 Currently on both chemotherapy and radiation Past Surgical History: Reports: Hx Cardiac Surgery - Port-A-Cath placement Review of Systems - Review of Systems Notes: REVIEW OF SYSTEMS: CONSTITUTIONAL : Denies recent illness. Denies recent unintentional weight loss. Denies fever, chills, or sweats. EENT: Denies eye, ear, throat, or mouth pain, discharge, or symptoms. Denies nasal or sinus congestion. CARDIOVASCULAR: Denies chest pain. RESPIRATORY: Denies shortness of breath, cough, congestion, difficulty breathing, or wheezing. GASTROINTESTINAL: See HPI. GENITOURINARY: Denies difficulty urinating, burning, blood in urine, urgency or frequency. MUSCULOSKELETAL: Denies neck and back pain. Denies joint pain or swelling. SKIN: Denies rash, itchiness, or lesions HEMATOLOGIC : Denies easy bruising or bleeding. LYMPHATIC: Denies swollen, painful, enlarged glands. NEUROLOGICAL: Denies no numbness or tingling denies weakness. Denies headache. Denies altered mental status. Denies alteration in speech. PSYCHIATRIC: Denies stress, anxiety, alteration in sleep patterns, or depression. All other systems reviewed and negative. Physical Exam - Vital signs Vitals: Temp Pulse Resp BP Pulse Ox 98.8 F 97 18 138/80 H 97 03/30/20 21:07 03/30/20 21:07 03/30/20 21:07 03/30/20 21:07 03/30/20 21:07 - Notes Notes: PHYSICAL EXAMINATION: GENERAL: Appears well, healthy, well-nourished, no acute distress. HEAD: Normocephalic, atraumatic. EYES: PERRL, conjunctiva normal, all extraocular movements intact, sclera nonicteric ENT: Moist mucous membranes. NECK: Supple, no noticeable swelling, redness, rash. Normal range of motion. LUNGS: Equal breath sounds bilaterally and clear to auscultation. No wheezes rales or rhonchi. CARDIOVASCULAR: S1-S2, regular rate, regular rhythm. Radial pulses 2+, normal. ABDOMEN: Normoactive bowel sounds. Soft, tender generalized abdomen, no guarding, no rebound tenderness, and no masses palpated. EXTREMITIES: Normal strength and range of motion, no pitting or edema. No cyanosis. NEUROLOGICAL: Moves all extremities upon command. Strength 5/5 in all extremities. PSYCH: Normal mood, normal affect. SKIN: Warm, dry. No rash, lesions, ulcerations noted. Normal skin turgor. Course - Re-evaluation Re-evalutation: 03/31/20 02:25 I spoke with [facility] transfer center. A call back from the on-call oncologist. 03/31/20 03:16 Labs show hyponatremia of 126.6 and hypokalemia of 3.1. Calcium is 7.2, although corrected calcium is normal. Lactic acid is unremarkable. LFTs are also unremarkable. Hematology shows a a slight pancytopenia, but this is most likely related to her cancer. Blood gases unremarkable. CT of the abdomen/pelvis shows colitis. I spoke Dr. Rushing, the oncologist at [facility]. He is recommending the patient start on 40 mg of prednisone daily and admission for IV hydration. 03/31/20 04:[address] Mcknight, patient will be admitted here for rehydration. - Vital Signs Vital signs: Temp Pulse Resp BP Pulse Ox 97.8 F 87 16 134/78 H 95 03/31/20 12:00 03/31/20 12:00 03/31/20 12:00 03/31/20 12:00 03/31/20 12:00 - Laboratory Result Diagrams: 03/30/20 23:31 03/31/20 15:38 Laboratory results interpreted by me: 03/30/20 03/30/20 03/30/20 22:31 22:31 23:31 WBC 2.6 L RBC 2.96 L Hgb 10.1 L Hct 29.1 L MCV 98 H MCH 34.2 H RDW 15.9 H Plt Count 140 L Lymph % (Auto) 8.2 L Absolute Lymphs (auto) 0.2 L Seg Neutrophils % 80.1 H Sodium Potassium Lactic Acid Calcium Iron 28.7 L TIBC 174 L Transferrin 104.59 L Ferritin 1560.00 H AST Total Protein Albumin Vitamin B12 > 1000.0 H 03/30/20 03/30/20 23:31 23:31 WBC RBC Hgb Hct MCV MCH RDW Plt Count Lymph % (Auto) Absolute Lymphs (auto) Seg Neutrophils % Sodium 126.6 L Potassium 3.1 L Lactic Acid < 0.5 L Calcium 7.2 L Iron TIBC Transferrin Ferritin AST 44 H Total Protein 4.9 L Albumin 2.4 L Vitamin B12 Discharge - Discharge Clinical Impression: Colitis, Dehydration, Hyponatremia, Hypokalemia Nausea and vomiting Qualifiers: Vomiting type: unspecified Vomiting Intractability: unspecified Qualified Code(s): R11.2 - Nausea with vomiting, unspecified Diarrhea Qualifiers: Diarrhea type: unspecified type Qualified Code(s): R19.7 - Diarrhea, unspecified Condition: Stable Disposition: ADMITTED INPATIENT Admitting Provider: Juan Luis (Hospitalist) Unit Admitted: Telemetry
[2020-03-30 23:56] LABS: ABSOLUTE LYMPHOCYTES (AUTO) 0.2 10^3/uL (0.5-4.7); ABSOLUTE MONOCYTES (AUTO) 0.3 10^3/uL (0.1-1.4); ABSOLUTE NEUT (AUTO) 2.1 10^3/uL (1.7-8.2); BASOPHILS % (AUTO) 0.3 % (0-2); EOSINOPHILS % (AUTO) 1.2 % (0-6); HEMATOCRIT 29.1 % (36.0-47.0); HEMOGLOBIN 10.1 g/dL (12.0-15.5); LYMPHOCYTES % (AUTO) 8.2 % (13-45); MEAN CORPUSCULAR HEMOGLOBIN 34.2 pg (27.0-33.4); MEAN CORPUSCULAR HGB CONC 34.9 g/dL (32.0-36.0); MEAN CORPUSCULAR VOLUME 98 fl (80-97); MONOCYTES % (AUTO) 10.2 % (3-13); PLATELET COUNT 140 10^3/uL (150-450); RED BLOOD COUNT 2.96 10^6/uL (3.72-5.28); RED CELL DISTRIBUTION WIDTH 15.9 % (11.5-14.0); SEGMENTED NEUTROPHILS % (AUTO) 80.1 % (42-78); TOTAL CELLS COUNTED % (AUTO) 100 %; WHITE BLOOD COUNT 2.6 10^3/uL (4.0-10.5)
[2020-03-31 00:19] LABS: ALBUMIN 2.4 g/dL (3.5-5.0); ALKALINE PHOSPHATASE 70 U/L (38-126); ASPARTATE AMINO TRANSFERASE 44 U/L (14-36); BILIRUBIN,DIRECT 0.1 mg/dL (0.0-0.4); BILIRUBIN,TOTAL 0.4 mg/dL (0.2-1.3); BLOOD UREA NITROGEN 10 mg/dL (7-20); CALCIUM 7.2 mg/dL (8.4-10.2); GLUCOSE 86 mg/dL (75-110); POTASSIUM 3.1 mmol/L (3.6-5.0); TOTAL PROTEIN 4.9 g/dL (6.3-8.2)
[2020-03-31 00:24] LABS: ANION GAP 5 (5-19); CARBON DIOXIDE 24 mmol/L (22-30); CHLORIDE 98 mmol/L (98-107)
[2020-03-31] MEDS ORDERED: POTASSIUM CHLORIDE 20 MEQ PACKET PO ONE (01:37)
[2020-03-31] MEDS ORDERED: POTASSI CL 20 MEQ/50 ML RIDER 20 MEQ/50 ML RTUPB IV SCH (01:45)
--- NOTE | 2020-03-31 01:52 | RADIOLOGY REPORT (SQ) ---
CLINICAL HISTORY: vomiting/diarrhea; hx of cancer. CREAT 0.73 COMPARISON: None. TECHNIQUE: CT ABDOMEN PELVIS WITH IV CONTRAST on 03/30/2020 9:39 PM CDT This exam was performed according to our departmental dose-optimization program, which includes automated exposure control, adjustment of the mA and/or kV according to patient size and/or use of iterative reconstruction technique. FINDINGS: Lower lungs are clear. Abdomen: There is a lobulated cyst in the left lobe of the liver measuring 2.5 cm. There is no biliary dilatation. Gallbladder is normal in appearance. The pancreas and spleen are normal in appearance. The adrenal glands and kidneys are unremarkable. Abdominal aorta is normal in course and caliber without aneurysm. There is no free air. There is no retroperitoneal adenopathy. Pelvis: There is diffuse thickening of the colon. Urinary bladder is unremarkable. There is no free fluid. Uterus is normal in size. Appendix is normal. Skeleton: There are no acute osseous findings. No suspicious bony lesions. IMPRESSION: Diffuse infectious or inflammatory colitis.
[2020-03-31 02:32] LABS: VENOUS BLOOD BASE EXCESS -1.9 mmol/L; VENOUS BLOOD PCO2 39.7 mmHg (35-63); VENOUS BLOOD PH 7.38 (7.30-7.42)
[2020-03-31] MEDS ORDERED: METRONIDAZOLE 500 MG/NS RTU 500 MG/100 ML RTUPB IV ONE (02:57)
[2020-03-31] MEDS ORDERED: NORMAL SALINE 1000 ML 1,000 ML IV ONE (03:06)
[2020-03-31] MEDS ORDERED: PREDNISONE 20 MG TABLET PO ONE (03:15)
[2020-03-31] MEDS ORDERED: ONDANSETRON HCL INJ/PF 4 MG/2 ML SDV IV ONE (03:49)
[2020-03-31] MEDS ORDERED: ACETAMINOPHEN 325 MG TABLET PO PRN (04:04)
[2020-03-31] MEDS ORDERED: HYDRALAZINE HCL INJ/PF 20 MG/1 ML SDV IV PRN (04:04)
[2020-03-31] MEDS ORDERED: IPRATROPIUM/ALBUTEROL 0.5-2.5 MG/3 ML AMPUL NEB PRN (04:04)
[2020-03-31] MEDS ORDERED: LOPERAMIDE HCL 2 MG CAPSULE PO ONE ×2 (04:04→23:00)
[2020-03-31] MEDS ORDERED: PREDNISONE 20 MG TABLET ONE (05:57)
--- NOTE | 2020-03-31 06:36 | PDOC H&P ---
History of Present Illness Admission Date/PCP: 03/31/20 04:07 NICKO GORDILLO PA-C Patient complains of: Diarrhea History of Present Illness: MANNY CORRALES is a 65 year old female with a past medical history of tobacco dependence, hypertension, CVA, seizure, left-sided lung cancer status post chemo radiation currently on immunotherapy through Dr. Rushing at [facility]. Patient presents with approximately 1 week nausea and abdominal pain associated with diarrhea without fever or blood. In the emergency department she has pancytopenia, hypokalemia, hyponatremia and a CT abdomen suggestive of pancolitis. Patient's covering oncologist is contacted by emergency room provider recommending steroids, hydration and antibiotic management. Patient is referred to the hospitalist for admission. She denies known infectious contacts or suspect meals. She is otherwise felt well, without recent change in [id number] or prescribed medication. Past Medical History Cardiac Medical History: Reports: Hypertension Neurological Medical History: Reports: Seizures Malignancy Medical History: Reports: Lung Cancer - Mets to lymph nodes. Currently on both chemotherapy and radiation Psychiatric Medical History: Reports: Tobacco Dependency Past Surgical History Past Surgical History: Reports: None Social History Information Source: Patient, Emergency Med Personnel Smoking Status: Current Some Day Smoker Frequency of Alcohol Use: None Drugs: None - Advance Directive Resuscitation Status: Full Code Family History Family History: Hypertension Parental Family History Reviewed: Yes Children Family History Reviewed: Yes Sibling(s) Family History Reviewed.: Yes Medication/Allergy Home Medications: Cefuroxime Axetil [Ceftin 250 mg Tablet] 250 mg PO BID #20 tablet 12/22/19 Allergies/Adverse Reactions: codeine Allergy (Verified 03/30/20 21:07) shellfish derived Allergy (Verified 03/30/20 21:07) seafood Allergy (Uncoded 03/30/20 21:07) Review of Systems Constitutional: PRESENT: as per HPI, anorexia, fatigue, weakness, weight loss. ABSENT: fever(s), night sweats Eyes: ABSENT: visual disturbances Ears: ABSENT: hearing changes Cardiovascular: ABSENT: chest pain, dyspnea on exertion, edema, orthropnea, palpitations Respiratory: PRESENT: as per HPI. ABSENT: cough, dyspnea, sputum Gastrointestinal: PRESENT: as per HPI, abdominal pain, bloating, diarrhea, nausea. ABSENT: coffee ground emesis, constipation, vomiting Genitourinary: ABSENT: dysuria, hematuria Musculoskeletal: ABSENT: joint swelling Integumentary: ABSENT: rash, wounds Neurological: ABSENT: abnormal gait, abnormal speech, confusion, dizziness, focal weakness, syncope Psychiatric: ABSENT: anxiety, depression, homidical ideation, suicidal ideation Endocrine: ABSENT: cold intolerance, heat intolerance, polydipsia, polyuria Hematologic/Lymphatic: ABSENT: easy bleeding, easy bruising Physical Exam Vital Signs: Temp Pulse Resp BP Pulse Ox 98.5 F 97 16 131/71 H 100 03/31/20 05:07 03/31/20 05:07 03/31/20 05:07 03/31/20 05:07 03/31/20 05:07 Intake & Output 03/29/20 03/30/20 03/31/20 11:59 11:59 11:59 Intake Total 1050 Balance 1050 Weight 47.627 kg General appearance: PRESENT: cooperative, mild distress, thin, well-developed, well-nourished. ABSENT: disheveled Head exam: PRESENT: atraumatic, normocephalic Eye exam: PRESENT: conjunctiva pale, EOMI, PERRLA. ABSENT: scleral icterus Ear exam: PRESENT: normal external ear exam Mouth exam: PRESENT: moist, tongue midline Neck exam: ABSENT: carotid bruit, JVD, lymphadenopathy, thyromegaly Respiratory exam: PRESENT: clear to auscultation lalito. ABSENT: rales, rhonchi, wheezes Cardiovascular exam: PRESENT: RRR. ABSENT: diastolic murmur, rubs, systolic murmur Pulses: PRESENT: normal dorsalis pedis pul Vascular exam: PRESENT: normal capillary refill GI/Abdominal exam: PRESENT: hyperactive bowel sounds, tenderness. ABSENT: diminished bowel sounds, distended, firm, guarding Rectal exam: PRESENT: deferred Extremities exam: PRESENT: full ROM. ABSENT: calf tenderness, clubbing, pedal edema Neurological exam: PRESENT: alert, awake, oriented to person, oriented to place, oriented to time, oriented to situation, CN II-XII grossly intact. ABSENT: motor sensory deficit Psychiatric exam: PRESENT: appropriate affect, normal mood. ABSENT: homicidal ideation, suicidal ideation Skin exam: PRESENT: dry, intact, warm. ABSENT: cyanosis, rash Results Laboratory Results: 03/30/20 23:31 03/30/20 23:31 03/30/20 03/30/20 03/30/20 23:31 23:31 23:31 WBC 2.6 L RBC 2.96 L Hgb 10.1 L Hct 29.1 L MCV 98 H MCH 34.2 H MCHC 34.9 RDW 15.9 H Plt Count 140 L Seg Neutrophils % 80.1 H VBG pH VBG pCO2 VBG HCO3 VBG Base Excess Sodium 126.6 L Potassium 3.1 L Chloride 98 Carbon Dioxide 24 Anion Gap 5 BUN 10 Creatinine 0.73 Est GFR ( Amer) > 60 Glucose 86 Lactic Acid < 0.5 L Calcium 7.2 L Magnesium Total Bilirubin 0.4 AST 44 H Alkaline Phosphatase 70 Total Protein 4.9 L Albumin 2.4 L 03/30/20 03/31/20 23:31 02:10 WBC RBC Hgb Hct MCV MCH MCHC RDW Plt Count Seg Neutrophils % VBG pH 7.38 VBG pCO2 39.7 VBG HCO3 23.0 VBG Base Excess -1.9 Sodium Potassium Chloride Carbon Dioxide Anion Gap BUN Creatinine Est GFR ( Amer) Glucose Lactic Acid Calcium Magnesium 1.9 Total Bilirubin AST Alkaline Phosphatase Total Protein Albumin Impressions: Abdomen/Pelvis CT 03/30/20 21:39 IMPRESSION: Diffuse infectious or inflammatory colitis. Assessment and Plan - Diagnosis (1) Colitis Is this a current diagnosis for this admission?: Yes Plan: Likely noninfectious, steroid challenge, IV fluid and electrolyte repletion, follow-up CBC and chemistry (2) Dehydration Is this a current diagnosis for this admission?: Yes Plan: Secondary to #1, (3) Diarrhea Qualifiers: Diarrhea type: unspecified type Qualified Code(s): R19.7 - Diarrhea, unspecified Is this a current diagnosis for this admission?: Yes Plan: Secondary to #1, (4) Hypokalemia Is this a current diagnosis for this admission?: Yes Plan: Secondary to #1, IV repletion, follow-up magnesium and chemistry (5) Hyponatremia Is this a current diagnosis for this admission?: Yes Plan: Appears hypovolemic, hypotonic, normal saline challenge, follow-up chemistry every 8 hours (6) Nausea and vomiting Qualifiers: Vomiting type: unspecified Vomiting Intractability: unspecified Qualified Code(s): R11.2 - Nausea with vomiting, unspecified Is this a current diagnosis for this admission?: Yes Plan: Secondary to #1, symptomatic management (7) Anemia Is this a current diagnosis for this admission?: Yes Plan: Likely secondary to malignancy, follow-up anemia labs - Time Time Spent with patient: 25-34 minutes - Inpatient Certification Medical Necessity: Need Close Monitoring Due to Risk of Patient Decompensation
[2020-03-31] MEDS: NORMAL SALINE 1000 ML 1,000 ML IV PRN (06:49)
[2020-03-31] MEDS: HEPARIN SOD (PORCINE) 5,000 UNIT/ML 1 ML VIAL SUBCUT SCH ×3 (06:56→21:19)
[2020-03-31 06:58] LABS: IRON(TIBC) 28.7 ug/dL (37-170)
[2020-03-31 07:19] LABS: ABSOLUTE RETICS # 0.045 10^6/uL (0.028-0.122); RETICULOCYTE COUNT (AUTO) 1.52 % (0.66-2.85)
[2020-03-31] MEDS: PREDNISONE 20 MG TABLET PO SCH ×2 (09:31→17:04)
[2020-03-31] MEDS: CIPROFLOXACIN 400 MG/D5W RTU 400 MG/200 ML RTUPB IV SCH ×2 (14:42→22:20)
[2020-03-31] MEDS: METRONIDAZOLE 500 MG/NS RTU 500 MG/100 ML RTUPB IV SCH ×2 (14:42→21:19)
[2020-03-31 16:18] LABS: ANION GAP 6 (5-19); BLOOD UREA NITROGEN 9 mg/dL (7-20); CALCIUM 7.4 mg/dL (8.4-10.2); CARBON DIOXIDE 23 mmol/L (22-30); CHLORIDE 98 mmol/L (98-107); GLUCOSE 197 mg/dL (75-110); POTASSIUM 3.6 mmol/L (3.6-5.0)
[2020-03-31 17:25] LABS: APPEARANCE,URINE CLEAR; BILIRUBIN,URINE NEGATIVE (NEGATIVE); COLOR,URINE STRAW; GLUCOSE, URINE NEGATIVE (NEGATIVE); KETONES,URINE NEGATIVE (NEGATIVE); LEUKOCYTE ESTERASE,URINE NEGATIVE (NEGATIVE); NITRITE,URINE NEGATIVE (NEGATIVE); PROTEIN,URINE NEGATIVE (NEGATIVE); URINE SPECIFIC GRAVITY 1.008; UROBILINOGEN,URINE NEGATIVE mg/dL (<2.0)
--- NOTE | 2020-03-31 17:43 | Progress Note ---
Provider Note Provider Note: Patient admitted last night with a history of lung cancer, presenting with colitis and hyponatremia. She said her diarrhea is improving. She looks comfortable. Vital signs are stable and she is on room air. Ordered Cipro and Flagyl. She is not ready to advance her diet and wants to stay on clear liquids for now. Sodium is unchanged from last night, stable at 126.
[2020-03-31] MEDS ORDERED: TRAZODONE HCL 50 MG TABLET PO SCH (22:00)
[2020-03-31 22:16] LABS: C DIFFICILE GDH NEGATIVE (NEGATIVE)
[2020-03-31 22:40] LABS: ANION GAP 7 (5-19); BLOOD UREA NITROGEN 9 mg/dL (7-20); CALCIUM 7.8 mg/dL (8.4-10.2); CARBON DIOXIDE 22 mmol/L (22-30); CHLORIDE 100 mmol/L (98-107); GLUCOSE 130 mg/dL (75-110); POTASSIUM 3.5 mmol/L (3.6-5.0)
[2020-04-01] MEDS: NORMAL SALINE 1000 ML 1,000 ML IV PRN ×2 (00:55→09:13)
[2020-04-01] MEDS: METRONIDAZOLE 500 MG/NS RTU 500 MG/100 ML RTUPB IV SCH ×4 (04:06→22:04)
[2020-04-01] MEDS: HEPARIN SOD (PORCINE) 5,000 UNIT/ML 1 ML VIAL SUBCUT SCH ×3 (05:18→22:05)
[2020-04-01 07:09] LABS: HEMATOCRIT 28.9 % (36.0-47.0); MEAN CORPUSCULAR HEMOGLOBIN 34.2 pg (27.0-33.4); MEAN CORPUSCULAR HGB CONC 34.7 g/dL (32.0-36.0); MEAN CORPUSCULAR VOLUME 98 fl (80-97); PLATELET COUNT 157 10^3/uL (150-450); RED BLOOD COUNT 2.93 10^6/uL (3.72-5.28); RED CELL DISTRIBUTION WIDTH 15.1 % (11.5-14.0); WHITE BLOOD COUNT 3.7 10^3/uL (4.0-10.5)
[2020-04-01 07:20] LABS: ANION GAP 6 (5-19); BLOOD UREA NITROGEN 8 mg/dL (7-20); CALCIUM 7.9 mg/dL (8.4-10.2); CARBON DIOXIDE 24 mmol/L (22-30); CHLORIDE 103 mmol/L (98-107); GLUCOSE 128 mg/dL (75-110); POTASSIUM 3.1 mmol/L (3.6-5.0)
[2020-04-01] MEDS: PREDNISONE 20 MG TABLET PO SCH ×2 (09:13→17:54)
[2020-04-01] MEDS: POTASSI CL 20 MEQ/50 ML RIDER 20 MEQ/50 ML RTUPB IV SCH ×2 (09:14→10:46)
[2020-04-01] MEDS: CIPROFLOXACIN 400 MG/D5W RTU 400 MG/200 ML RTUPB IV SCH ×2 (09:22→22:04)
[2020-04-01] MEDS ORDERED: LOPERAMIDE HCL 2 MG CAPSULE PO PRN (11:39)
[2020-04-01] MEDS ORDERED: TRAZODONE HCL 50 MG TABLET PO PRN (12:29)
--- NOTE | 2020-04-01 14:59 | PDOC PROGRESS REPORT ---
Subjective Progress Note for:: 04/01/20 Subjective:: No adverse events overnight. No new complaints. She said that she is ready to advance her diet. Her sodium has improved and we had to replace some potassium this morning. No nausea or vomiting. Abdominal pain has improved. No fevers. Reason For Visit: HYPONATREMIA,NAUSEA VOMITING,LUNG CA Physical Exam Vital Signs: Temp Pulse Resp BP Pulse Ox 97.5 F 73 16 146/63 H 100 04/01/20 14:00 04/01/20 14:00 04/01/20 14:00 04/01/20 14:00 04/01/20 14:00 Intake & Output 03/31/20 04/01/20 04/02/20 06:59 06:59 06:59 Intake Total 1050 4310 953 Balance 1050 4310 953 Weight 47.62 kg 42.7 kg General appearance: PRESENT: no acute distress, cooperative, hard of hearing, thin Respiratory exam: PRESENT: clear to auscultation lalito, symmetrical, unlabored. ABSENT: accessory muscle use, chest wall tenderness, crackles, prolonged expiratory phas, rhonchi, tachypnea, wheezes Cardiovascular exam: PRESENT: RRR, +S1, +S2 Pulses: PRESENT: normal carotid pulses Vascular exam: PRESENT: normal capillary refill GI/Abdominal exam: PRESENT: normal bowel sounds, soft. ABSENT: distended, guarding, rebound, tenderness Extremities exam: ABSENT: clubbing, pedal edema Musculoskeletal exam: PRESENT: normal inspection. ABSENT: deformity Neurological exam: PRESENT: alert, awake, oriented to person, oriented to place, oriented to situation Psychiatric exam: PRESENT: appropriate affect, normal mood Skin exam: PRESENT: dry, warm Results Laboratory Results: 04/01/20 06:50 04/01/20 06:50 03/31/20 03/31/20 03/31/20 15:38 17:05 22:03 WBC RBC Hgb Hct MCV MCH MCHC RDW Plt Count Sodium 126.5 L 128.8 L Potassium 3.6 3.5 L Chloride 98 100 Carbon Dioxide 23 22 Anion Gap 6 7 BUN 9 9 Creatinine 0.63 0.58 Est GFR ( Amer) > 60 > 60 Glucose 197 H 130 H Calcium 7.4 L 7.8 L Urine Color STRAW Urine Appearance CLEAR Urine pH 6.0 Ur Specific [place] 1.008 Urine Protein NEGATIVE Urine Glucose (UA) NEGATIVE Urine Ketones NEGATIVE Urine Blood NEGATIVE Urine Nitrite NEGATIVE Ur Leukocyte Esterase NEGATIVE Urine WBC (Auto) 1 Urine RBC (Auto) 0 04/01/20 04/01/20 06:50 06:50 WBC 3.7 L RBC 2.93 L Hgb 10.0 L Hct 28.9 L MCV 98 H MCH 34.2 H MCHC 34.7 RDW 15.1 H Plt Count 157 Sodium 133.3 L Potassium 3.1 L Chloride 103 Carbon Dioxide 24 Anion Gap 6 BUN 8 Creatinine 0.58 Est GFR ( Amer) > 60 Glucose 128 H Calcium 7.9 L Urine Color Urine Appearance Urine pH Ur Specific [place] Urine Protein Urine Glucose (UA) Urine Ketones Urine Blood Urine Nitrite Ur Leukocyte Esterase Urine WBC (Auto) Urine RBC (Auto) 03/31/20 02:10 Blood Blood Culture (PCR) - Final Staphylococcus Species Impressions: Abdomen/Pelvis CT 03/30/20 21:39 IMPRESSION: Diffuse infectious or inflammatory colitis. Assessment and Plan - Diagnosis (1) Colitis Is this a current diagnosis for this admission?: Yes Plan: Currently on Cipro and Flagyl, responding well. Advancing diet. If she tolerates this she should be able to go home on oral antibiotics tomorrow. (2) Dehydration Is this a current diagnosis for this admission?: Yes Plan: Resolved (3) Diarrhea Qualifiers: Diarrhea type: unspecified type Qualified Code(s): R19.7 - Diarrhea, unspecified Is this a current diagnosis for this admission?: Yes Plan: She was negative for C. difficile. Have started loperamide and probiotics. (4) Hypokalemia Is this a current diagnosis for this admission?: Yes Plan: Replacing with supplement as needed (5) Hyponatremia Is this a current diagnosis for this admission?: Yes Plan: Improved (6) Nausea and vomiting Qualifiers: Vomiting type: unspecified Vomiting Intractability: unspecified Qualified Code(s): R11.2 - Nausea with vomiting, unspecified Is this a current diagnosis for this admission?: Yes Plan: Resolved (7) Anemia Qualifiers: Anemia type: iron deficiency Iron deficiency anemia type: inadequate diet karli iron intake Qualified Code(s): D50.8 - Other iron deficiency anemias Is this a current diagnosis for this admission?: Yes Plan: Hemoglobin remained stable. Would recommend she get on an iron supplement as outpatient. (8) Hypocalcemia Is this a current diagnosis for this admission?: Yes Plan: Resolved, now corrects to normal with her hypoalbuminemia (9) Seizures Is this a current diagnosis for this admission?: Yes Plan: Continue Keppra (10) Hypertension Qualifiers: Hypertension type: essential hypertension Qualified Code(s): I10 - Essential (primary) hypertension Is this a current diagnosis for this admission?: Yes Plan: Continue her home medications as long as her blood pressure tolerates (11) Lung cancer Qualifiers: Laterality: left Lung location: upper lobe of lung Qualified Code(s): C34.12 - Malignant neoplasm of upper lobe, left bronchus or lung Is this a current diagnosis for this admission?: Yes Plan: Resume outpatient follow-up (12) Tobacco abuse Is this a current diagnosis for this admission?: Yes Plan: We will strongly encourage cessation - Time Time Spent with patient: 25-34 minutes
[2020-04-01] MEDS: LACTOBACILLUS ACIDOPHILUS 250 MG TAB PO SCH ×2 (15:00→17:55)
[2020-04-01 17:19] LABS: ANION GAP 6 (5-19); BLOOD UREA NITROGEN 6 mg/dL (7-20); CALCIUM 7.9 mg/dL (8.4-10.2); CARBON DIOXIDE 23 mmol/L (22-30); CHLORIDE 105 mmol/L (98-107); GLUCOSE 101 mg/dL (75-110); POTASSIUM 3.8 mmol/L (3.6-5.0)
[2020-04-01] MEDS: LEVETIRACETAM XR 500 MG TAB.SR.24H PO SCH (17:55)
[2020-04-01] MEDS ORDERED: POTASSIUM CHLORIDE 10 MEQ TABLET.ER PO SCH (18:00)
[2020-04-01] MEDS ORDERED: GABAPENTIN 300 MG CAPSULE PO SCH (18:00)
[2020-04-01] MEDS ORDERED: (PENDING PHARMACY ID) (Potassium Chloride [Klor-Con M20] 20 MEQ) PO SCH (18:00)
[2020-04-01] MEDS ORDERED: MONTELUKAST SODIUM 10 MG TABLET PO SCH (18:00)
[2020-04-01] MEDS ORDERED: (PENDING PHARMACY ID) (Rosuvastatin Calcium [Crestor] 20 MG) PO SCH (22:00)
[2020-04-01] MEDS ORDERED: ATORVASTATIN CALCIUM 40 MG TABLET PO SCH (22:00)
[2020-04-02] MEDS: METRONIDAZOLE 500 MG/NS RTU 500 MG/100 ML RTUPB IV SCH (03:34)
[2020-04-02] MEDS: LEVETIRACETAM XR 500 MG TAB.SR.24H PO SCH (06:15)
[2020-04-02] MEDS: HEPARIN SOD (PORCINE) 5,000 UNIT/ML 1 ML VIAL SUBCUT SCH (06:17)
[2020-04-02 07:02] LABS: ANION GAP 8 (5-19); BLOOD UREA NITROGEN 4 mg/dL (7-20); CALCIUM 8.2 mg/dL (8.4-10.2); CARBON DIOXIDE 24 mmol/L (22-30); CHLORIDE 102 mmol/L (98-107); GLUCOSE 102 mg/dL (75-110); POTASSIUM 3.5 mmol/L (3.6-5.0)
[2020-04-02] MEDS ORDERED: VENLAFAXINE HCL 37.5 MG CAP.SR.24H PO SCH (10:00)
[2020-04-02 10:32] VITALS: BP 139/72
--- NOTE | 2020-04-02 16:11 | PDOC DISCHARGE SUMMARY ---
Impression - Admit/DC Date/PCP Admission Date/Primary Care Provider: 03/31/20 04:07 NICKO GORDILLO PA-C Discharge Date: 04/02/20 - Discharge Diagnosis (1) Colitis Is this a current diagnosis for this admission?: Yes (2) Dehydration Is this a current diagnosis for this admission?: Yes (3) Diarrhea Is this a current diagnosis for this admission?: Yes (4) Hypokalemia Is this a current diagnosis for this admission?: Yes (5) Hyponatremia Is this a current diagnosis for this admission?: Yes (6) Nausea and vomiting Is this a current diagnosis for this admission?: Yes (7) Anemia Is this a current diagnosis for this admission?: Yes (8) Hypocalcemia Is this a current diagnosis for this admission?: Yes (9) Seizures Is this a current diagnosis for this admission?: Yes (10) Hypertension Is this a current diagnosis for this admission?: Yes (11) Lung cancer Is this a current diagnosis for this admission?: Yes (12) Tobacco abuse Is this a current diagnosis for this admission?: Yes - Additional Information Resuscitation Status: Full Code Discharge Diet: Cardiac Discharge Activity: Activity As Tolerated, Balance Activity w/Rest Referrals: NICKO GORDILLO PA-C [Primary Care Provider] - 04/08/20 1:45 pm () Prescriptions: Ciprofloxacin HCl [Cipro 500 mg Tablet] 500 mg PO BID #20 tablet Prednisone [Deltasone 20 mg Tablet] 20 mg PO BID #10 tablet Metronidazole [Flagyl 500 mg Tablet] 500 mg PO TID #30 tablet Tramadol HCl [Ultram 50 mg Tablet] 50 mg PO Q8HP PRN #10 tablet PRN Reason: Home Medications: Citalopram Hydrobromide [Citalopram HBr] 10 mg PO QHS 03/31/20 Gabapentin [Neurontin 300 mg Capsule] 300 mg PO BID 03/31/20 Levetiracetam [Keppra Xr 500 mg Tab.sr] 500 mg PO Q12@03/31/20 Montelukast Sodium [Singulair 10 mg Tablet] 10 mg PO QPM 03/31/20 Ondansetron HCl [Zofran 8 mg Tablet] 8 mg PO Q8HP PRN 03/31/20 Potassium Chloride [Klor-Con M20] 20 meq PO BID 03/31/20 Rosuvastatin Calcium [Crestor] 20 mg PO QHS 03/31/20 Trazodone HCl 100 mg PO BID 03/31/20 Venlafaxine HCl ER [Effexor Xr 37.5 mg Cap.sr] 37.5 mg PO DAILY 03/31/20 Ciprofloxacin HCl [Cipro 500 mg Tablet] 500 mg PO BID #20 tablet 04/02/20 Lactobacillus Acidophilus [Bacid 250 mg Tablet] 500 mg PO BID tab 04/02/20 Metronidazole [Flagyl 500 mg Tablet] 500 mg PO TID #30 tablet 04/02/20 Prednisone [Deltasone 20 mg Tablet] 20 mg PO BID #10 tablet 04/02/20 Tramadol HCl [Ultram 50 mg Tablet] 50 mg PO Q8HP PRN #10 tablet 04/02/20 History of Present Illiness History of Present Illness: MANNY CORRALES is a 65 year old female with a past medical history of tobacco dependence, hypertension, CVA, seizure, left-sided lung cancer status post chemo radiation currently on immunotherapy through Dr. Rushing at [facility]. Patient presents with approximately 1 week nausea and abdominal pain associated with diarrhea without fever or blood. In the emergency department she has pancytopenia, hypokalemia, hyponatremia and a CT abdomen suggestive of panc olitis. Patient's covering oncologist is contacted by emergency room provider recommending steroids, hydration and antibiotic management. Patient is referred to the hospitalist for admission. She denies known infectious contacts or suspect meals. She is otherwise felt well, without recent change in [id number] or prescribed medication. Hospital Course Hospital Course: We treated her for colitis with antibiotics and steroids at oncology's recommendation. She improved rather well. She had initially was only tolerating liquids, but she advanced to tolerating regular food. We will treat her with a burst of prednisone at home as well as a course of Cipro and Flagyl. Her white blood cell count did come up a little bit, and her sodium improved with some IV fluids. Her comorbid conditions were managed with her home medications were not exacerbated during this hospitalization. She has follow-up with her oncologist to continue her treatment. Her labs and examination are reassuring and she was discharged in stable condition. Physical Exam Vital Signs: Temp Pulse Resp BP Pulse Ox 97.8 F 92 17 139/72 H 98 04/02/20 10:31 04/02/20 10:31 04/02/20 10:31 04/02/20 10:31 04/02/20 10:31 Intake & Output 04/01/20 04/02/20 04/03/20 06:59 06:59 06:59 Intake Total 4310 2743 Balance 4310 2743 Weight 42.7 kg 48.5 kg General appearance: PRESENT: no acute distress, cooperative, hard of hearing, thin Respiratory exam: PRESENT: clear to auscultation lalito, symmetrical, unlabored. ABSENT: accessory muscle use, chest wall tenderness, crackles, prolonged expiratory phas, rhonchi, tachypnea, wheezes Cardiovascular exam: PRESENT: RRR, +S1, +S2 Pulses: PRESENT: normal carotid pulses Vascular exam: PRESENT: normal capillary refill GI/Abdominal exam: PRESENT: normal bowel sounds, soft. ABSENT: distended, guarding, rebound, tenderness Extremities exam: ABSENT: clubbing, pedal edema Musculoskeletal exam: PRESENT: normal inspection. ABSENT: deformity Neurological exam: PRESENT: alert, awake, oriented to person, oriented to place, oriented to situation Psychiatric exam: PRESENT: appropriate affect, normal mood Skin exam: PRESENT: dry, warm Results Laboratory Results: WBC 3.7 10^3/uL (4.0-10.5) L 04/01/20 06:50 RBC 2.93 10^6/uL (3.72-5.28) L 04/01/20 06:50 Hgb 10.0 g/dL (12.0-15.5) L 04/01/20 06:50 Hct 28.9 % (36.0-47.0) L 04/01/20 06:50 MCV 98 fl (80-97) H 04/01/20 06:50 MCH 34.2 pg (27.0-33.4) H 04/01/20 06:50 MCHC 34.7 g/dL (32.0-36.0) 04/01/20 06:50 RDW 15.1 % (11.5-14.0) H 04/01/20 06:50 Plt Count 157 10^3/uL (150-450) 04/01/20 06:50 Lymph % (Auto) 8.2 % (13-45) L 03/30/20 23:31 [place] % (Auto) 10.2 % (3-13) 03/30/20 23:31 Eos % (Auto) 1.2 % (0-6) 03/30/20 23:31 Baso % (Auto) 0.3 % (0-2) 03/30/20 23:31 Reticulocyte # 0.045 10^6/uL (0.028-0.122) 03/30/20 22:31 Absolute Neuts (auto) 2.1 10^3/uL (1.7-8.2) 03/30/20 23:31 Absolute Lymphs (auto) 0.2 10^3/uL (0.5-4.7) L 03/30/20 23:31 Absolute Monos (auto) 0.3 10^3/uL (0.1-1.4) 03/30/20 23: Absolute Eos (auto) 0.0 10^3/uL (0.0-0.6) 03/30/20 23:31 Absolute Basos (auto) 0.0 10^3/uL (0.0-0.2) 03/30/20 23:31 Seg Neutrophils % 80.1 % (42-78) H 03/30/20 23:31 Retic Count (auto) 1.52 % (0.66-2.85) 03/30/20 22:31 VBG pH 7.38 (7.30-7.42) 03/31/20 02:10 VBG pCO2 39.7 mmHg (35-63) 03/31/20 02:10 VBG HCO3 23.0 mmol/L (20-32) 03/31/20 02:10 VBG Base Excess -1.9 mmol/L 03/31/20 02:10 Sodium 133.6 mmol/L (137-145) L 04/02/20 06:25 Potassium 3.5 mmol/L (3.6-5.0) L 04/02/20 06:25 Chloride 102 mmol/L (98-107) 04/02/20 06:25 Carbon Dioxide 24 mmol/L (22-30) 04/02/20 06:25 Anion Gap 8 (5-19) 04/02/20 06:25 BUN 4 mg/dL (7-20) L 04/02/20 06:25 Creatinine 0.62 mg/dL (0.52-1.25) 04/02/20 06:25 Est GFR ( Amer) > 60 (>60) 04/02/20 06:25 Est GFR (MDRD) Non-Af > 60 (>60) 04/02/20 06:25 Glucose 102 mg/dL (75-110) 04/02/20 06:25 Lactic Acid < 0.5 mmol/L (0.7-2.1) L 03/30/20 23:31 Calcium 8.2 mg/dL (8.4-10.2) L 04/02/20 06:25 Magnesium 1.9 mg/dL (1.6-2.3) 03/30/20 23:31 Iron 28.7 ug/dL (37-170) L 03/30/20 22:31 TIBC 174 ug/dL (250-450) L 03/30/20 22:31 % Saturation 16 % 03/30/20 22:31 Transferrin 104.59 mg/dL (206.00-381.00) L 03/30/20 22:31 Ferritin 1560.00 ng/mL (11.1-264.0) H 03/30/20 22:31 Total Bilirubin 0.4 mg/dL (0.2-1.3) 03/30/20 23:31 Direct Bilirubin 0.1 mg/dL (0.0-0.4) 03/30/20 23:31 Neonat Total Bilirubin Not Reportable 03/30/20 23:31 Neonat Direct Bilirubin Not Reportable 03/30/20 23:31 Neonat Indirect Bili Not Reportable 03/30/20 23:31 AST 44 U/L (14-36) H 03/30/20 23:31 ALT 21 U/L (<35) 03/30/20 23:31 Alkaline Phosphatase 70 U/L (38-126) 03/30/20 23:31 Total Protein 4.9 g/dL (6.3-8.2) L 03/30/20 23:31 Albumin 2.4 g/dL (3.5-5.0) L 03/30/20 23:31 Vitamin B12 > 1000.0 pg/mL (239-931) H 03/30/20 22:31 Folate 19.40 ng/mL (>2.76) 03/30/20 22:31 Urine Color STRAW 03/31/20 17:05 Urine Appearance CLEAR 03/31/20 17:05 Urine pH 6.0 (5.0-9.0) 03/31/20 17:05 Ur Specific [place] 1.008 03/31/20 17:05 Urine Protein NEGATIVE mg/dL (NEGATIVE) 03/31/20 17:05 Urine Glucose (UA) NEGATIVE mg/dL (NEGATIVE) 03/31/20 17:05 Urine Ketones NEGATIVE mg/dL (NEGATIVE) 03/31/20 17:05 Urine Blood NEGATIVE (NEGATIVE) 03/31/20 17:05 Urine Nitrite NEGATIVE (NEGATIVE) 03/31/20 17:05 Urine Bilirubin NEGATIVE (NEGATIVE) 03/31/20 17:05 Urine Urobilinogen NEGATIVE mg/dL (<2.0) 03/31/20 17:05 Ur Leukocyte Esterase NEGATIVE (NEGATIVE) 03/31/20 17:05 Urine WBC (Auto) 1 /HPF 03/31/20 17:05 Urine RBC (Auto) 0 /HPF 03/31/20 17:05 Squamous Epi Cells Auto <1 /HPF 03/31/20 17:05 Urine Ascorbic Acid NEGATIVE (NEGATIVE) 03/31/20 17:05 Stl C. Difficile GDH Ag NEGATIVE (NEGATIVE) 03/31/20 20:00 Stl C.difficile Tox A&B NEGATIVE (NEGATIVE) 03/31/20 20:00 Impressions: Abdomen/Pelvis CT 03/30/20 21:39 IMPRESSION: Diffuse infectious or inflammatory colitis. Plan Time Spent: Greater than 30 Minutes Stroke Is this a Stroke Patient?: No Acute Heart Failure - Is this a Heart Failure Patient?: No
== END 2020-04-02 11:15 | disposition home or self-care (01) | DRG 392 ==
LOC: ER 19:50 → EH 03-31 04:07 → 4W 03-31 06:45
PROVIDERS: ADMIT Internal Medicine; ATTEND Family Medicine
DX: K52.9 Noninfective gastroenteritis and colitis, unspecified (principal); E87.1 Hypo-osmolality and hyponatremia; C77.9 Secondary and unspecified malignant neoplasm of lymph node, unspecified; C34.12 Malignant neoplasm of upper lobe, left bronchus or lung; Z68.1 Body mass index [BMI] 19.9 or less, adult; E86.0 Dehydration; E87.6 Hypokalemia; E83.51 Hypocalcemia; I10 Essential (primary) hypertension; D63.0 Anemia in neoplastic disease; F17.210 Nicotine dependence, cigarettes, uncomplicated; R63.6 Underweight; Z79.52 Long term (current) use of systemic steroids; Z79.899 Other long term (current) drug therapy; Z86.73 Personal history of transient ischemic attack (TIA), and cerebral infarction without residual deficits; Z92.3 Personal history of irradiation; Z92.21 Personal history of antineoplastic chemotherapy; Z88.6 Allergy status to analgesic agent; Z91.013 Allergy to seafood
CPT/HCPCS: 36415; 74177; 80048; 80053; 81001; 82607; 82728; 82746; 82803; 83540; 83550; 83605; 83735; 84466; 85025; 85027; 85045; 87040; 87077; 87150; 87186; 87324; 87449; 96361; 96374; 99285; J0744; J1644; J2405; J3480; J3490; J7030; J7512

== ENCOUNTER 2020-05-27 23:32 | Emergency (ER) | payer MEDICARE, OTHER ==
[2020-05-28] MEDS ORDERED: ONDANSETRON HCL INJ/PF 4 MG/2 ML SDV IV ONE (00:25)
--- NOTE | 2020-05-28 00:31 | ER Document Report ---
ED General - General Chief Complaint: Vomiting Stated Complaint: DIZZINESS,BLOOD PRESSURE PROBLEM Time Seen by Provider: 05/28/20 00:13 Notes: Patient is a 65-year-old female with a history of lung cancer status post chemotherapy, radiation, and currently on immunotherapy with Dr. Rushing at [facility], that comes emergency department for chief complaint of an episode of vomiting, multiple episodes of diarrhea, generalized abdominal pain, and weakness. Vomiting episode occurred just prior to arrival. states that she has been generally weak as well, he states she is gotten to the point that she cannot walk with complete assistance over the past 2 weeks. He also states that earlier before she vomited she briefly appeared confused, could not remember what they were doing, cannot recall where they were. He states this did resolved but he became more concerned. Patient is currently oriented, she denies any current pain, she denies headache, chest pain, abdominal pain, and denies recent fevers. She was recently treated for colitis and is finishing up prednisone for this. Past medical history also includes CVA and is currently on Xarelto for this, hypertension, seizure disorder on antiepileptics. TRAVEL OUTSIDE OF THE [place] IN LAST 30 DAYS: No - Related Data Allergies/Adverse Reactions: codeine Allergy (Verified 03/30/20 21:07) shellfish derived Allergy (Verified 03/30/20 21:07) seafood Allergy (Uncoded 03/30/20 21:07) Past Medical History - General Information source: Patient, Relative - Social History Smoking Status: Current Every Day Smoker Frequency of alcohol use: None Drug Abuse: None Lives with: Family Family History: Reviewed & Not Pertinent Patient has homicidal ideation: No - Past Medical History Cardiac Medical History: Reports: Hx Hypertension Neurological Medical History: Reports: Hx Cerebrovascular Accident - Sep 2019, Hx Seizures Malignancy Medical History: Reports: 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 Currently on both chemotherapy and radiation Psychiatric Medical History: Denies: Hx Depression Past Surgical History: Reports: Hx Cardiac Surgery - Port-A-Cath placement - Immunizations Immunizations up to date: Yes Hx Diphtheria, Pertussis, Tetanus Vaccination: Yes Review of Systems - Review of Systems Constitutional: See HPI EENT: No symptoms reported Cardiovascular: See HPI Respiratory: No symptoms reported Gastrointestinal: See HPI Genitourinary: No symptoms reported Female Genitourinary: No symptoms reported Musculoskeletal: No symptoms reported Skin: No symptoms reported Hematologic/Lymphatic: No symptoms reported Neurological/Psychological: See HPI Physical Exam - Vital signs Vitals: Resp 16 05/27/20 23:42 - Notes Notes: GENERAL: Alert, interacts well. No acute distress. HEAD: Normocephalic, atraumatic. EYES: Pupils equal, round, and reactive to light. Extraocular movements intact. ENT: Oral mucosa moist, tongue midline. Oropharynx unremarkable. Airway patent. NECK: Full range of motion. Supple. Trachea midline. No lymphadenopathy. LUNGS: Clear to auscultation bilaterally, no wheezes, rales, or rhonchi. No respiratory distress. Non-tender chest wall. HEART: Regular rate and rhythm. No murmur ABDOMEN: Soft, non-tender. Non-distended. Bowel sounds present in all 4 quadrants. EXTREMITIES: Moves all 4 extremities spontaneously. No edema, normal radial and dorsalis pedis pulses bilaterally. No cyanosis. BACK: no cervical, thoracic, lumbar midline tenderness. No saddle anesthesia, normal distal neurovascular exam. Moves all extremities in full range of motion. NEUROLOGICAL: Alert and oriented x3. Normal speech. Cranial nerves II through XII grossly intact. Strength 5/5 in all extremities. PSYCH: Normal affect, normal mood. SKIN: Warm, dry, normal turgor. No rashes or lesions noted. Course - Re-evaluation Re-evalutation: Patient has no complaints on my evaluation. Vital signs unremarkable here. Because of the reported episode of confusion along with patient being on Xarelto, CT of the head was performed but was unremarkable. Chest x-ray with no significant change from prior. EKG with no acute findings. Troponin is not elevated. CBC showing chronic anemia, chronic thrombocytopenia. Chemistry with elevated BUN but nonspecific otherwise. Patient was given IV fluids. After this she was able to provide a urine sample which was unremarkable. CAT scan of the abdomen/pelvis was performed because of patient's intermittent abdominal pain, recent colitis, vomiting, cancer history. This was unremarkable with no acute findings. I called and spoke with who was here earlier. I discussed all details. now states that in addition to what he told me patient was being rushed to the bathroom in an attempt to use the toilet when she did not make it, accidentally had diarrhea and soiled herself, stated she felt nauseated, she vomited, he states that he placed on the toilet and she appeared to briefly pass out. He states that afterwards she became arousable and briefly confused which resolved. Patient has not had any chest pain, patient has no neurological deficits on my exam. I discussed with patient. Patient remains completely oriented on exam, she has no complaints, she is requesting to go home. is slightly concerned about this, requests I speak to oncology. I also spoke with Dr. Clemente, clinical picture is most consistent with vasovagal syncope with no concerning findings at this time, patient will be discussed with the oncology group first for disposition. I discussed with Dr. Heath, on-call for Dr. Rushing, patient's oncologist at [facility]. I discussed details of patient's history, presentation, evaluation, work-up. He states he feels it is appropriate for patient to be discharged with follow-up today with Dr. Rushing and return precautions. I discussed this at length. Patient and stated understanding and agreement with plan. - Vital Signs Vital signs: Temp Pulse Resp BP Pulse Ox 98.3 F 12 166/86 H 100 05/27/20 23:50 05/28/20 05:16 05/28/20 05:01 05/28/20 05:16 - Laboratory Result Diagrams: 05/28/20 00:55 05/28/20 01:40 Laboratory results interpreted by me: 05/28/20 05/28/20 05/28/20 00:55 01:40 02:14 RBC 3.45 L Hgb 11.9 L Hct 34.5 L MCV 100 H MCH 34.5 H RDW 16.4 H Plt Count 126 L Seg Neuts % (Manual) 89 H Band Neutrophils % 1 L Lymphocytes % (Manual) 6 L Abs Neuts (Manual) 8.7 H VBG pH 7.45 H Sodium 133.2 L Potassium 5.1 H Anion Gap 3 L BUN 27 H Glucose 202 H Total Protein 5.6 L Albumin 3.1 L - EKG Interpretation by Me Additional EKG results interpreted by me: EKG shows sinus rhythm at a rate of 75, QTC of 443, borderline left axis d eviation, no T wave inversions or ST segment changes in consecutive leads Discharge - Discharge Clinical Impression: Weakness Episode of syncope Qualifiers: Syncope type: vasovagal syncope Qualified Code(s): R55 - Syncope and collapse Diarrhea Qualifiers: Diarrhea type: unspecified type Qualified Code(s): R19.7 - Diarrhea, unspecified Vomiting Qualifiers: Vomiting type: unspecified Vomiting Intractability: non-intractable Nausea presence: unspecified Qualified Code(s): R11.10 - Vomiting, unspecified Condition: Stable Disposition: HOME, SELF-CARE Additional Instructions: She has been treated for mild dehydration today, her evaluation is concerning concerning findings including the skin of her head, skin the abdomen, and general laboratory work-up. The episode appears to be from vasovagal syncope as we discussed. I did discuss with Dr. Heath, oncology at [facility] restoration silversmith for Dr. Rushing. Please call Dr. Rushing today for close follow-up and additional management. Take Zofran if needed for nausea. Return if she worsens including chest pain, passing out again, fever, return vomiting, abdominal pain, or any other concerning or worsening symptoms. Prescriptions: Ondansetron [Zofran Odt 4 mg Tablet] 1 tab PO Q4H PRN #12 tab.rapdis PRN Reason: For Nausea/Vomiting
[2020-05-28 01:10] LABS: HEMATOCRIT 34.5 % (36.0-47.0); HEMOGLOBIN 11.9 g/dL (12.0-15.5); MEAN CORPUSCULAR HEMOGLOBIN 34.5 pg (27.0-33.4); MEAN CORPUSCULAR HGB CONC 34.4 g/dL (32.0-36.0); MEAN CORPUSCULAR VOLUME 100 fl (80-97); PLATELET COUNT 126 10^3/uL (150-450); RED BLOOD COUNT 3.45 10^6/uL (3.72-5.28); RED CELL DISTRIBUTION WIDTH 16.4 % (11.5-14.0); WHITE BLOOD COUNT 9.7 10^3/uL (4.0-10.5)
[2020-05-28 01:29] LABS: ABSOLUTE LYMPHOCYTES# (MANUAL) 0.6 10^3/uL (0.5-4.7); ABSOLUTE MONOCYTES # (MANUAL) 0.4 10^3/uL (0.1-1.4); BAND NEUTROPHILS % (MANUAL) 1 % (3-5); BASOPHILS % (MANUAL) 0 % (0-2); EOSINOPHILS % (MANUAL) 0 % (0-6); LYMPHOCYTES % (MANUAL) 6 % (13-45); MONOCYTES % (MANUAL) 4 % (3-13); SEGMENTED NEUTROPHILS % (MAN) 89 % (42-78); TOTAL CELLS COUNTED 100
[2020-05-28 01:30] LABS: ANISOCYTOSIS 1+; PLATELET COMMENT DECREASED; TOXIC VACUOLATION PRESENT
--- NOTE | 2020-05-28 01:38 | RADIOLOGY REPORT (SQ) ---
CLINICAL HISTORY: confusion, hx lung cancer COMPARISON: 10/04/2019. TECHNIQUE: CT HEAD WITHOUT IV CONTRAST on 05/28/2020 12:24 AM CDT This exam was performed according to our departmental dose-optimization program, which includes automated exposure control, adjustment of the mA and/or kV according to patient size and/or use of iterative reconstruction technique. FINDINGS: There is no acute hemorrhage, mass effect or midline shift. There is encephalomalacia within the left frontal and especially left parietal and occipital lobes. There is no hydrocephalus. There is no significant volume loss for age. The calvarium is intact. Orbits and globes are unremarkable. The paranasal sinuses are clear. Mastoid air cells are clear. IMPRESSION: No acute intracranial findings.
--- NOTE | 2020-05-28 01:49 | RADIOLOGY REPORT (SQ) ---
EXAM DESCRIPTION: X-ray single view chest. CLINICAL HISTORY: 65 years Female, weakness COMPARISON: 10/04/2019 and PET/CT performed on 12/08/2018 TECHNIQUE: Single portable x-ray view of the chest performed on 05/28/2020 at 1:25 AM FINDINGS: The lungs are well expanded. There is slight volume loss in the left lung base and there is a spiculated appearance of the left suprahilar region compatible with the patient's known area of malignancy. The right lung is grossly clear. There is no evidence of a pneumothorax. The cardiac silhouette is normal in size and configuration. No acute osseous abnormality is identified. No focal soft tissue abnormalities are seen. Lines and tubes: There is a right IJ [id number] catheter. The tip overlies the region of the superior vena cava. IMPRESSION: 1. Spiculated opacity in the left suprahilar region compatible with the patient's known area of malignancy and mild volume loss in the left lung base which may be due to fibrosis and/or atelectasis. 2. Right IJ [id number] catheter tip overlies the region of the SVC.
[2020-05-28 02:15] LABS: ALBUMIN 3.1 g/dL (3.5-5.0); ALKALINE PHOSPHATASE 56 U/L (38-126); ASPARTATE AMINO TRANSFERASE 19 U/L (14-36); BILIRUBIN,TOTAL 0.2 mg/dL (0.2-1.3); BLOOD UREA NITROGEN 27 mg/dL (7-20); CALCIUM 8.6 mg/dL (8.4-10.2); GLUCOSE 202 mg/dL (75-110); POTASSIUM 5.1 mmol/L (3.6-5.0); TOTAL PROTEIN 5.6 g/dL (6.3-8.2)
[2020-05-28 02:22] LABS: CARBON DIOXIDE 28 mmol/L (22-30); CHLORIDE 102 mmol/L (98-107)
[2020-05-28 02:23] LABS: ANION GAP 3 (5-19)
[2020-05-28 02:29] LABS: VENOUS BLOOD PCO2 36.9 mmHg (35-63); VENOUS BLOOD PH 7.45 (7.30-7.42)
[2020-05-28] MEDS ORDERED: NORMAL SALINE 500 ML IV ONE (02:46)
[2020-05-28 03:49] LABS: APPEARANCE,URINE SLIGHTLY-CLOUDY; BILIRUBIN,URINE NEGATIVE (NEGATIVE); COLOR,URINE YELLOW; GLUCOSE, URINE NEGATIVE (NEGATIVE); KETONES,URINE NEGATIVE (NEGATIVE); LEUKOCYTE ESTERASE,URINE NEGATIVE (NEGATIVE); NITRITE,URINE NEGATIVE (NEGATIVE); PROTEIN,URINE NEGATIVE (NEGATIVE); URINE SPECIFIC GRAVITY 1.012; UROBILINOGEN,URINE NEGATIVE mg/dL (<2.0)
--- NOTE | 2020-05-28 04:28 | RADIOLOGY REPORT (SQ) ---
CLINICAL HISTORY: worsening abd pain, vomiting COMPARISON: None. TECHNIQUE: CT ABDOMEN PELVIS WITH IV CONTRAST on 05/28/2020 2:45 AM CDT This exam was performed according to our departmental dose-optimization program, which includes automated exposure control, adjustment of the mA and/or kV according to patient size and/or use of iterative reconstruction technique. FINDINGS: Lower lungs are clear. Abdomen: There is a small cyst in the upper left lobe of the liver. There is no biliary dilatation. Gallbladder is normal in appearance. The pancreas and spleen are normal in appearance. The adrenal glands and kidneys are unremarkable. Abdominal aorta is normal in course and caliber without aneurysm. There is no free air. There is no retroperitoneal adenopathy. Pelvis: There is moderate diverticulosis of the distal colon. Urinary bladder is unremarkable. There is no free fluid. Uterus is normal in size. Appendix is not clearly seen. Skeleton: There are no acute osseous findings. No suspicious bony lesions. IMPRESSION: No acute inflammatory process.
[2020-05-28 05:19] VITALS: BP 166/86
--- NOTE | 2020-05-28 09:50 | EKG REPORT ---
SEVERITY:- ABNORMAL ECG - SINUS RHYTHM BORDERLINE LEFT AXIS DEVIATION ACCELERATED AV CONDUCTION. : Confirmed by: Rubin Soto MD 28-May-2020 09:49:31
== END 2020-05-28 05:37 | disposition home or self-care (01) ==
LOC: ER 23:32
DX: R55 Syncope and collapse (principal); R11.10 Vomiting, unspecified; R53.1 Weakness; R19.7 Diarrhea, unspecified; R42 Dizziness and giddiness; R10.84 Generalized abdominal pain; I10 Essential (primary) hypertension; G40.909 Epilepsy, unspecified, not intractable, without status epilepticus; Z88.8 Allergy status to other drugs, medicaments and biological substances; Z85.118 Personal history of other malignant neoplasm of bronchus and lung; Z79.899 Other long term (current) drug therapy; Z86.73 Personal history of transient ischemic attack (TIA), and cerebral infarction without residual deficits; Z79.01 Long term (current) use of anticoagulants
CPT/HCPCS: 93005; 99284; 96361; 96374; 36415; 83690; 85025; 80053; 81001; 84484; 82803; 71045; 70450; 74177; 93010; J2405; J7040